=== PATIENT | male | born 1960 | race Caucasian/White ===

== ENCOUNTER 2017-09-13 06:25 | Inpatient (IN) ==
[2017-09-13] MEDS ORDERED: CeFAZolin Syr 2,000MG/20 ML 2,000 MG/20 ML SYRINGE IVPB ONE (06:51)
[2017-09-13] MEDS ORDERED: Albuterol 2.5 MG/3 ML NEBULIZER IH ONE (06:53)
[2017-09-13] MEDS ORDERED: *HR* Phenylephrine 10 MG/ML VIAL ONE ×2 (06:53→10:41)
[2017-09-13] MEDS ORDERED: Dexamethasone 4 MG/ML VIAL ONE (06:56)
[2017-09-13] MEDS ORDERED: *HR* Rocuronium Bromide 50 MG/5 ML VIAL ONE (06:56)
[2017-09-13] MEDS ORDERED: Lidocaine -MPF 2% 2 ML VIAL ONE ×2 (06:56→07:28)
[2017-09-13] MEDS ORDERED: *HR* FentaNYL (PF) 100 MCG/2 ML VIAL ONE ×2 (06:56→12:49)
[2017-09-13] MEDS ORDERED: Ondansetron 4 MG/2 ML VIAL ONE (06:56)
[2017-09-13] MEDS ORDERED: *HR* Midazolam HCl 2 MG/2 ML VIAL ONE ×2 (06:56→14:13)
[2017-09-13] MEDS ORDERED: Albuterol 2.5 MG/3 ML NEBULIZER ONE (06:57)
[2017-09-13] MEDS ORDERED: *HR* Propofol 200 MG/20 ML VIAL IVP ONE ×2 (06:57→09:54)
[2017-09-13] MEDS ORDERED: Ringers Solution, Lactated 1,000 ML IVC SCH (07:00)
[2017-09-13] MEDS ORDERED: Famotidine 20 MG/2 ML VIAL IVP ONE (07:05)
[2017-09-13] MEDS ORDERED: Pregabalin 50 MG CAPSULE PO STA (07:06)
[2017-09-13] MEDS ORDERED: Acetaminophen IV 1,000 MG/100 ML INFUS..BTL IVPB ONE (07:06)
[2017-09-13] MEDS ORDERED: Heparin 1,000 UNITS/500 mL 1,000 ML ONE (07:09)
--- NOTE | 2017-09-13 07:13 | Anesthesia Evaluation PreOp ---
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) Alcohol Use: none Drug use: none Medications and Allergies Aspirin 81 mg PO DAILY 12/28/16 [History] Cyclobenzaprine [Flexeril] 10 mg PO HS 12/28/16 [History] Gabapentin [Neurontin] 800 mg PO TID 12/28/16 [History] Amlodipine Besylate 10 mg PO DAILY 08/30/17 [History] Atorvastatin [Lipitor] 40 mg PO HS 08/30/17 [History] Clotrimazole 1% CRM [Lotrimin 1%] 1 appl TP BID 08/30/17 [History] Losartan [Cozaar] 25 mg PO DAILY 08/30/17 [History] Nicotine Patch [Nicoderm] 21 mg TD DAILY 08/30/17 [History] Pantoprazole Sodium [Protonix] 40 mg PO DAILY 08/30/17 [History] Tamsulosin [Flomax] 0.4 mg PO DAILY 08/30/17 [History] OxyCODONE/APAP 5/325 [Percocet 5/325 MG] 1 tab PO BID PRN 09/13/17 [History] 3 Allergy/AdvReac Type Severity Reaction Status Date / Time hydrochlorothiazide AdvReac See Verified 09/13/17 07:27 Comments morphine AdvReac Nausea Verified 09/13/17 07:15 - Meds/Allergy Pre-op Review Medications Reviewed: Yes Allergies Reviewed: Yes Beta Blockers on Current Med List: No Anesthesia Results - Labs Laboratory Tests 08/27/17 08/27/17 08/27/17 08:07 08:07 08:07 WBC 7.9 Hgb 14.1 Hct 46.2 Plt Count 411 H PT 11.0 INR 1.0 APTT Sodium 140 Potassium 4.3 Chloride 104 Carbon Dioxide 28 BUN 27 H Creatinine 1.33 H 08/27/17 13:54 WBC Hgb Hct Plt Count PT INR APTT 30.1 Sodium Potassium Chloride Carbon Dioxide BUN Creatinine - Imaging EKG: image reviewed (97bpm - INUS RHYTHM WITH SHORT GA INTERVAL NONSPECIFIC T- WAVE ABNORMALITY Electronically Signed On 08-29-2017 8:37:53 EST by Daniele Vazquez MD) Anesthesia Exam O2 Sat Height 1.78 m Height 1.78 m Height 1.78 m Weight 80.286 kg Weight 80.286 kg Weight 80.286 kg O2 Sat by Pulse Oximetry 96 O2 Sat by Pulse Oximetry 96 Vital Signs Temp Pulse Resp BP Pulse Ox 98.2 F 82 18 137/83 96 09/13/17 06:50 09/13/17 06:50 09/13/17 06:50 09/13/17 06:50 09/13/17 06:50 Height: 5'10" Weight: 177# BMI = 25 NPO (# of Hours): MNOc Pain Scale Used: Numeric (1 - 10) - HEENT Pupil (Motor): Pupils equal, EOMI Mallampati: II Teeth: Normal Oral Opening: Greater than 3 - CREATIVE COORDINATOR LOC: Oriented CREATIVE COORDINATOR Motor: Normal RUE, Normal LUE, Normal RLE, Normal LLE, Normal Face CREATIVE COORDINATOR Sensory: Normal: RUE, LUE, RLE, LLE, Face - Cardiac Rhythm: Regular Murmur: None - Pulmonary Breath Sounds: bilateral Clear Respiratory Effort: Symmetrical Anesthesia Assess/Plan ASA Score: 3 (PVDz, Smoker) Modified Portia Scale for Level of Consciousness: Cooperative, oriented, and tranquil Anesthetic Plan: General Monitoring Plan: Standard Monitors, A-Line Recovery Plan: PACU Anes Supervising Prov Stmt: Pt seen/evaluated, R&B Discussed, questions answered and consen obtained. Sunni Wiggins MD
[2017-09-13] MEDS ORDERED: *HR* Remifentanil 2 MG VIAL IVP ONE (07:16)
[2017-09-13] MEDS ORDERED: Heparin 1,000 UNITS/500 mL 500 ML ONE (07:28)
--- NOTE | 2017-09-13 07:34 | History & Physical Report ---
Date of Encounter: 09/13/17 Time of Encounter: 07:25 24 Hour HP Update - Instructions Instructions: If the History and Physical is less than 30 days old and was completed prior to A.M. admission and or procedure and has NOT been updated on calendar day of procedure please complete this update prior to performing procedure. - Update Patient reports changes in Medical Condition: No Changes in examination, assessment, or condition: No Changes in Medication: No Preop tests/diagnostics Reviewed: Yes Surgery Remains Indicated: Yes Consent for Planned Operative Procedure(s) Verified: Yes - Pre-Operative Checklist Preoperative Checklist Indicated: Yes Prophylactic Antibiotic Ordered: Yes Home Medications Include Beta Nava: No Beta Nava Taken Today (Day of Surgery): No Beta Nava Taken Yesterday (Day Prior to Surgery): No Is VTE Prophylaxis Indicated?: Yes
[2017-09-13] MEDS ORDERED: ceFAZolin 1,000 MG, Sodium Chloride IRRigation 1,000 ML IR ONE (07:45)
[2017-09-13] MEDS ORDERED: Isovue-300 150 ML INFUS..BTL IV ONE (08:26)
[2017-09-13] MEDS ORDERED: Isovue-300 50 ML VIAL IVP ONE (08:26)
[2017-09-13] MEDS ORDERED: EPHEDrine 50 MG/ML VIAL ONE (08:46)
[2017-09-13] MEDS ORDERED: Water for inj. (sterile) 10 ML IV ONE (08:56)
[2017-09-13] MEDS ORDERED: *HR* OxyCODONE Immed Rel 5 MG TABLET PO PRN (09:34)
[2017-09-13] MEDS ORDERED: Ondansetron 4 MG/2 ML VIAL IVP ONE (09:34)
[2017-09-13] MEDS ORDERED: Famotidine 20 MG/2 ML VIAL ONE (09:59)
[2017-09-13] MEDS ORDERED: *HR* Heparin 5,000 UNIT/ML VIAL ONE (10:02)
[2017-09-13] MEDS ORDERED: *HR* EPINEPHrine 1 MG/ML AMPUL ONE (10:02)
[2017-09-13] MEDS ORDERED: Neostigmine Methylsulfate 3 MG/3 ML SYRINGE ONE (12:11)
--- NOTE | 2017-09-13 12:55 | Operative Note ---
Date of procedure: 09/13/17 Pre-op diagnosis: PAD/claudication Post-op diagnosis: same Procedure: left SFA remote endarterectomy Left lower extremity angiogram Left common femoral and orificial profundus femoris endarterectomy left femoral to AK popliteal bypass with 6 mm PTFE distaflo Complications: 0 Anesthesia: GETA Surgeon: Tommy Chang Was there an surgical assistant certified present: No Estimated blood loss (cc): 200 Specimen: 0 Condition: stable Disposition: PACU Procedure in Detail: History Eduardo Zamora is a 57-year-old white male with known left lower extremity occlusive disease. He had undergone a balloon angioplasty of the left superficial femoral artery chronic total occlusion earlier in 2016. He had return of his symptoms. In August 2017 he returned to the endovascular suite. Balloon angioplasty this time was unsuccessful and he now comes to the operating room for revascularization. Procedure After informed consent was obtained the patient was taken to the operating room. General endotracheal anesthesia was established under arterial line pressure monitoring. A timeout protocol was observed. The left lower extremity was sterilely prepped and draped. An incision was made in the left groin to perform a formal exposure of the common femoral artery and its bifurcation with attention to dissecting and exposing the proximal 68 cm of the left superficial femoral artery. This vessel was occluded. Heparin was then administered in a dose of 5000 units. After 3 minute delay the proximal superficial femoral artery was clamped so that pulsatile flow would continue into the left leg via the common femoral and profunda femoris artery. A longitudinal arteriotomy was then created on the superficial femoral artery. A combination of chronic thrombus and acute thrombus and atherosclerotic material was encountered. This was then dissected in the standard routine method. Fluoroscopy was then used to shante the term terminus of the plaque as documented on the recent angiogram. Then using the remote endarterectomy spatula the plaque was dissected for the length of the superficial femoral artery. With this done the cutting rings were inserted. The plaque was then removed but there was an incomplete removal of the plaque in the sense that there was an area distally where the wires and catheters would not pass. A small extravascular leak was identified due to the endarterectomy material. Using a variety of wires and catheters attempt was made to reestablish connection into the distal true lumen of the [id number] popliteal artery. Despite these efforts and angiographic evaluation it was unsuccessful. Therefore it was opted to do a direct formal exploration. Therefore a second incision was then made on the medial aspect of the distal left thigh. Dissection was carried down to the [id number] popliteal artery. Control was obtained. Signs of mural hematoma were identified. An arteriotomy was then made in a longitudinal fashion. Thrombus was identified at this area as well as mild plaque. The distal lumen was patent and was flushed with heparinized saline. A 4 [place] Eris catheter was then passed retrograde and an attempt to thrombectomize any residual material. However upon passing this in a retrograde manner for a limited distance of about 10 cm the catheter would not advance further. Thrombus was identified and removed. The flow of blood through this area was enhanced but was not satisfactory and so therefore was opted to proceed with bypass graft. Therefore a 6 mm PTFE Distaflo was selected. The distal anastomosis was performed first. This was performed in end- to-side fashion using 6-0 Prolene suture. The graft was then passed retrograde through a subsartorial tunnel. The arteriotomy on the superficial femoral artery was carried proximally onto the very distal aspect of the common femoral artery so that any residual thrombus or atherosclerosis could be removed from this area as well as the orifice of the profunda femoris artery. After this extended endarterectomy was performed the area was flushed with heparinized saline. Then using the 6 mm graft as a patch the proximal anastomosis was performed in end-to-side fashion again using 6-0 Prolene. After appropriate backbleeding and flushing the graft was opened. Pulsatile flow was then achieved through the graft and into the popliteal system. Doppler signals are identified 3 at the left ankle. The wounds are then irrigated and hemostasis achieved. The wounds were closed in layers using absorbable suture. There were no intraoperative complications. The patient tolerated the procedure well. Patient was extubated in the operating room and taken to the recovery room in stable condition.
[2017-09-13] MEDS: *HR* FentaNYL (PF) 100 MCG/2 ML VIAL IVP PRN ×3 (13:00→13:15)
--- NOTE | 2017-09-13 13:12 | Anesthesia Evaluation Post Op ---
Date of Encounter: 09/13/17 Time of Encounter: 13:20 - Lungs Lungs: Clear Ascult./Percussion - Airway Airway: Non-obstructed - Cardiovascular Regular Rate - Mental Status Mental Status: Alert & Oriented, Answers Appropriately - Pain Pain Scale: 1 - Nausea Vomiting Nausea Vomiting: Not Present - Hydration Hydration: Ice chips, Bianchi catheter - Discharge PostOp Status: Transfer Patient to floor
[2017-09-13] MEDS ORDERED: Acetaminophen 325 MG TABLET PO PRN (13:51)
[2017-09-13] MEDS ORDERED: Naloxone 0.4 MG/ML INJ IVP PRN (13:51)
[2017-09-13] MEDS ORDERED: Ondansetron 4 MG/2 ML VIAL IVP PRN (13:51)
[2017-09-13] MEDS ORDERED: *HR* Midazolam HCl 2 MG/2 ML VIAL IVP ONE (14:18)
[2017-09-13] MEDS: CeFAZolin Premix DUPLEX 2,000 MG/50 ML BAG IVPB SCH ×2 (16:25→23:31)
[2017-09-13] MEDS: Nicotine 21 MG PATCH.TD24 TD SCH (16:26)
[2017-09-13] MEDS: Gabapentin 400 MG CAPSULE PO SCH ×2 (16:26→20:18)
[2017-09-13] MEDS: *HR* OxyCODONE Immed Rel 5 MG TABLET PO PRN (17:08)
[2017-09-13] MEDS: *HR* Metoprolol 5 MG/5 ML VIAL IVP SCH ×2 (17:24→23:31)
[2017-09-13] MEDS: *HR* OxyCODONE/APAP 5/325 TABLET PO PRN (20:17)
[2017-09-13] MEDS: Clotrimazole 1% CRM 15 GM TUBE TP SCH (20:28)
[2017-09-14] MEDS: *HR* OxyCODONE Immed Rel 5 MG TABLET PO PRN ×2 (03:49→11:31)
[2017-09-14 04:01] LABS: Basophils % 0.1 %; Hematocrit 33.2 % (37.5-50.1); Hemoglobin 10.9 g/dL (12.9-16.9); Immature Granulocytes % 0.5 % (0-4); Lymphocytes % 13.1 %; Mean Corpuscular HGB Conc 32.8 g/dL (31.6-35.5); Mean Corpuscular Hemoglobin 29.8 pg (28.0-33.3); Mean Corpuscular Volume 90.7 fL (83.0-100.0); Mean Platelet Volume 10.5 fL (9.4-12.4); Monocytes # 1.2 K/mcL (0.0-1.3); Monocytes % 7.9 %; Platelet Count 296 K/mcL (140-400); Red Blood Count 3.66 M/mcL (4.19-5.50); Red Cell Distribution Width 14.3 % (11.5-14.5); Segmented Neutrophils % 78.4 %
[2017-09-14 04:17] LABS: BUN/Creatinine Ratio 12 (6-26); Blood Urea Nitrogen 15 mg/dL (6-20); Calcium 8.8 mg/dL (8.6-10.3); Carbon Dioxide 26 mEq/L (23-29); Chloride 109 mEq/L (98-107); Glucose 113 mg/dL (70-105); Osmolality,Calculated 294 (280-300); Sodium 141 mEq/L (136-145); eGFR For African Americans > 60 (> 60); eGFR For Non-African Americans 59 (> 60)
[2017-09-14] MEDS: *HR* Metoprolol 5 MG/5 ML VIAL IVP SCH ×2 (06:05→11:31)
[2017-09-14] MEDS: CeFAZolin Premix DUPLEX 2,000 MG/50 ML BAG IVPB SCH (08:00)
[2017-09-14] MEDS: Nicotine 21 MG PATCH.TD24 TD SCH (08:01)
[2017-09-14] MEDS: Gabapentin 400 MG CAPSULE PO SCH (08:01)
[2017-09-14] MEDS: Clotrimazole 1% CRM 15 GM TUBE TP SCH (08:02)
[2017-09-14] MEDS ORDERED: Nicotine 21 MG PATCH.TD24 TD SCH (09:00)
[2017-09-14] MEDS ORDERED: Aspirin 81 MG TAB.CHEW PO SCH (09:00)
[2017-09-14] MEDS ORDERED: amLODIPine 5 MG TABLET PO SCH (09:00)
[2017-09-14] MEDS: *HR* OxyCODONE/APAP 5/325 TABLET PO PRN (09:41)
[2017-09-14 11:14] VITALS: BP 120/72
--- NOTE | 2017-09-14 12:27 | Discharge Summary ---
Date of Encounter: 09/14/17 Time of Encounter: 12:25 - Discharge Diagnosis (1) PAD (peripheral artery disease) Priority: Primary Status: Chronic Comments: Patient has lifestyle limiting left lower extremity claudication due to recurrent occlusion of the left superficial femoral artery. He initially had had a successful balloon angioplasty in early 2016. The vessel went on to reocclude and a second time endovascular intervention was unsuccessful leading to his surgical revascularization yesterday. (2) Hypertension Priority: Secondary Status: Chronic Comments: Patient under medical treatment. Qualifiers: Hypertension type: essential hypertension Qualified Code(s): I10 - Essential (primary) hypertension (3) Hyperlipidemia Priority: Secondary Status: Chronic Comments: Patient under medical treatment Qualifiers: Hyperlipidemia type: unspecified Qualified Code(s): E78.5 - Hyperlipidemia , unspecified (4) History of tobacco abuse Priority: Secondary Status: Chronic Comments: Patient under medical treatment - Discharge Medications Prescriptions: OxyCODONE/APAP 5/325 [Percocet 5/325 MG] 1 tab PO BID PRN 7 Days #10 tablet PRN Reason: Pain Home Medications: Aspirin 81 mg PO DAILY 12/28/16 [History] Cyclobenzaprine [Flexeril] 10 mg PO HS 12/28/16 [History] Gabapentin [Neurontin] 800 mg PO TID 12/28/16 [History] Amlodipine Besylate 10 mg PO DAILY 08/30/17 [History] Atorvastatin [Lipitor] 40 mg PO HS 08/30/17 [History] Clotrimazole 1% CRM [Lotrimin 1%] 1 appl TP BID 08/30/17 [History] Losartan [Cozaar] 25 mg PO DAILY 08/30/17 [History] Nicotine Patch [Nicoderm] 21 mg TD DAILY 08/30/17 [History] Pantoprazole Sodium [Protonix] 40 mg PO DAILY 08/30/17 [History] Tamsulosin [Flomax] 0.4 mg PO DAILY 08/30/17 [History] OxyCODONE/APAP 5/325 [Percocet 5/325 MG] 1 tab PO BID PRN 7 Days #10 tablet 05/22 [Rx] Allergies/Adverse Reactions: 3 Allergy/AdvReac Type Severity Reaction Status Date / Time hydrochlorothiazide AdvReac See Verified 09/13/17 07:27 Comments morphine AdvReac Nausea Verified 09/13/17 07:15 Date of admission: 09/13/17 13:42 Primary care physician: Devyn Lazaro MD Consults: None Procedure(s) Performed: Left superficial femoral artery remote endarterectomy, left common femoral artery and profunda femoris orifice endarterectomy, and left femoral to above- the-knee popliteal artery bypass graft with 6 mm PTFE. Discharging clinician: Tommy Chang Anticipated date of discharge: 09/14/17 - Patient Status Disposition: Home, Self-Care Condition: Good Functional capacity at discharge: independent ambulation Overall status at discharge: patient is progressing back to baseline - Discharge Instructions Follow Up With: Devyn Lazaro MD [Primary Care Provider] - 09/20/17 11:30 am Tommy Chang MD [Partnered Physician] - 10/23/17 9:45 am Additional Instructions: Removed surgical dressings on September 15. Keep surgical site dry for total of 5 days following surgery. No automobile driving. No manual labor. No lifting greater than 10 pounds. Keep left lower extremity elevated while in the seated position. Patient is to ambulate daily with a goal of 20 minutes twice a day. Patient may walk inside or outside. Patient may use stairs as tolerated. Patient is to use incentive spirometer 10 times an hour while awake for the next 2 weeks. Patient is to resume his usual home medications. Patient is to follow-up with Dr. Chang in approximately 2 weeks. - Diet and Activity Activity: increase activity as tolerated Diet: low fat, low cholesterol - Hospital Course Hospital course: Mr. Zamora is a 57 year old male With left lower extremity claudication. He underwent a left lower extremity revascularization requiring remote endarterectomy as well as femoral-popliteal bypass graft. Postoperatively the patient had a uneventful postoperative course. He had confucianist of palpable posterior tibial pulses at the ankle. His left foot was warm and pink. He was able to ambulate. He was felt fit for discharge on the afternoon of postoperative day #1. - Time Spent with Patient Total time spent providing and/or coordinating discharge services: Exam Vital Signs, Last 4 Hours Temp Pulse Resp BP Pulse Ox 09/14/17 11:13 98.7 F 92 20 120/72 93 General: Present: Conversant, No Apparent Distress, Well developed, Well nourished HEENT: Present: Atraumatic, Normocephaly Neck: Absent: JVD Cardiac: Present: Reg Rate and Rhythm Neuro: Present: Alert and responsive, No focal deficits noted, Cranial nerves grossly intact, Motor nerves grossly intact, Sensory nerves grossly intact Abdomen: Present: Soft Vascular: Present: Pulse, normal (Left ankle pulses are normal.), Color/ Temperature (Left foot is warm and pink), Surgical incisions (Dry dressings at groin and left thigh incisions.) Skin: Present: No rashes noted on visualized skin - VTE Documentation of Mechanical Device: Intermittent pneumatic compression device
== END 2017-09-14 14:15 | disposition home or self-care (01) | DRG 181 ==
LOC: SAMDAY 06:25 → 2NNU 13:42
PROVIDERS: ADMIT Surgery Vascular Surgery; ATTEND Surgery Vascular Surgery

== ENCOUNTER 2018-09-02 06:15 | Inpatient (IN) ==
[2018-09-02] MEDS ORDERED: Albuterol 2.5 MG/3 ML NEBULIZER IH ONE (06:49)
[2018-09-02] MEDS ORDERED: CeFAZolin Syr 2,000MG/20 ML 2,000 MG/20 ML SYRINGE IVPB ONE (06:49)
[2018-09-02] MEDS ORDERED: Lidocaine -MPF 4% 5 ML AMPUL ONE (06:51)
[2018-09-02] MEDS ORDERED: Heparin 1,000 UNITS/500 mL 1,000 ML ONE ×2 (06:55→07:19)
[2018-09-02] MEDS ORDERED: *HR* Midazolam HCl 2 MG/2 ML VIAL ONE (06:57)
[2018-09-02] MEDS ORDERED: *HR* FentaNYL (PF) 100 MCG/2 ML VIAL ONE ×3 (06:57→12:39)
[2018-09-02] MEDS ORDERED: *HR* Propofol 200 MG/20 ML VIAL IVP ONE (06:57)
[2018-09-02] MEDS ORDERED: *HR* Rocuronium Bromide 50 MG/5 ML VIAL ONE (06:58)
[2018-09-02] MEDS ORDERED: Lidocaine -MPF 2% 2 ML VIAL ONE (06:58)
[2018-09-02] MEDS ORDERED: Dexamethasone 4 MG/ML VIAL ONE ×2 (06:58→10:12)
[2018-09-02] MEDS ORDERED: Ondansetron 4 MG/2 ML VIAL ONE (06:58)
[2018-09-02] MEDS: Ringers Solution, Lactated 1,000 ML IVC SCH ×2 (07:13→11:23)
--- NOTE | 2018-09-02 07:14 | Anesthesia Evaluation PreOp ---
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, Other (chronic back pain) Other Medical History: Hepatic (hepatitis C), Renal (H/O kidney failure 2016), GERD Anesthesia History: No Prior Anesthetic Complications, Past Anesthesia Alcohol Use: none Drug use: none Medications and Allergies Aspirin 81 mg PO DAILY 12/28/16 [History] Gabapentin [Neurontin] 800 mg PO TID 12/28/16 [History] Atorvastatin [Lipitor] 40 mg PO HS 08/30/17 [History] Losartan [Cozaar] 25 mg PO DAILY 08/30/17 [History] Pantoprazole Sodium [Protonix] 40 mg PO DAILY 08/30/17 [History] Tamsulosin [Flomax] 0.4 mg PO DAILY 08/30/17 [History] Amlodipine Besylate 10 mg PO DAILY 08/29/18 [History] Docusate [Colace] 100 mg PO DAILY 08/29/18 [History] OxyCODONE/APAP 5/325 [Percocet 5/325 MG] 1 tab PO QID 08/29/18 [History] Trazodone HCl 2 tab PO HS 08/29/18 [History] Allergy/AdvReac Type Severity Reaction Status Date / Time hydrochlorothiazide AdvReac See Verified 09/13/17 07:27 Comments morphine AdvReac Nausea Verified 09/13/17 07:15 - Meds/Allergy Pre-op Review Medications Reviewed: Yes Allergies Reviewed: Yes Beta Blockers on Current Med List: No Anesthesia Results - Labs Laboratory Tests 08/28/18 08/28/18 08/28/18 13:46 13:46 13:46 WBC 7.9 Hgb 13.5 Hct 42.9 Plt Count 289 PT 11.3 INR 1.0 APTT 34.8 Sodium 140 Potassium 4.3 BUN 16 Creatinine 1.18 - Imaging EKG: report reviewed (08/21/2018 SINUS RHYTHM WITH SHORT AK INTERVAL WITH OCCASIONAL SUPRAVENTRICULAR PREMATURE COMPLEXES POSSIBLE LEFT ATRIAL ENLARGEMENT) Anesthesia Exam O2 Sat Height 1.75 m Height 1.75 m Weight 72.575 kg Weight 72.575 kg O2 Sat by Pulse Oximetry 97 Vital Signs Temp Pulse Resp BP Pulse Ox 97.7 F 72 18 121/69 97 09/02/18 06:39 09/02/18 06:39 09/02/18 06:39 09/02/18 06:39 09/02/18 06:39 Height: 5'9'' Weight: 160 lbs NPO (# of Hours): 8 Pain Scale: 6 (back) Pain Scale Used: Numeric (1 - 10) - HEENT Pupil (Motor): EOMI Mallampati: II Teeth: Edentulous Oral Opening: Greater than 3 - ADULT CROSSING GUARD LOC: Oriented ADULT CROSSING GUARD Motor: Normal RUE, Normal RLE, Normal Face, Deficit LUE, Deficit LLE ADULT CROSSING GUARD Sensory: Normal: RUE, LUE, RLE, Face, Deficit: LLE - Cardiac Rhythm: Regular Murmur: None - Pulmonary Breath Sounds: bilateral Clear Respiratory Effort: Symmetrical Anesthesia Assess/Plan ASA Score: 3 Level of consciousness: Cooperative, Oriented, Tranquil Anesthetic Plan: General Monitoring Plan: Standard Monitors, A-Line Recovery Plan: PACU
[2018-09-02] MEDS ORDERED: Bupivacaine-MPF 0.25% 10 ML VIAL ONE (07:19)
--- NOTE | 2018-09-02 07:22 | History & Physical Report ---
Date of Encounter: 09/02/18 Time of Encounter: 07:22 24 Hour HP Update - Instructions Instructions: If the History and Physical is less than 30 days old and was completed prior to A.M. admission and or procedure and has NOT been updated on calendar day of procedure please complete this update prior to performing procedure. - Update Patient reports changes in Medical Condition: No Changes in examination, assessment, or condition: No Changes in Medication: No Preop tests/diagnostics Reviewed: Yes Surgery Remains Indicated: Yes Consent for Planned Operative Procedure(s) Verified: Yes - Pre-Operative Checklist Preoperative Checklist Indicated: Yes Prophylactic Antibiotic Ordered: Yes Home Medications Include Beta Nava: No Beta Nava Taken Today (Day of Surgery): No Beta Nava Taken Yesterday (Day Prior to Surgery): No Is VTE Prophylaxis Indicated?: Yes
[2018-09-02] MEDS ORDERED: *HR* OxyCODONE Immed Rel 5 MG TABLET PO PRN ×2 (07:43→14:54)
[2018-09-02] MEDS ORDERED: *HR* HYDROmorphone (PF) 1 MG/ML SYRINGE IVP PRN (07:43)
[2018-09-02] MEDS ORDERED: Ondansetron 4 MG/2 ML VIAL IVP ONE (07:43)
[2018-09-02] MEDS ORDERED: ceFAZolin 1,000 MG, Sodium Chloride IRRigation 1,000 ML IR ONE (07:45)
[2018-09-02] MEDS ORDERED: EPHEDrine 50 MG/ML VIAL ONE (08:17)
[2018-09-02] MEDS ORDERED: *HR* Phenylephrine 10 MG/ML VIAL ONE ×2 (08:19→10:29)
[2018-09-02] MEDS ORDERED: *HR* PHENYLEPHRINE 1,000 MCG/10 ML SYRINGE IVP ONE (08:19)
[2018-09-02] MEDS ORDERED: *HR* Vasopressin 20 UNIT/ML VIAL ONE (08:25)
[2018-09-02] MEDS ORDERED: *HR* Heparin 5,000 UNIT/ML VIAL ONE ×2 (08:30→11:43)
--- NOTE | 2018-09-02 09:53 | Anesthesia Procedures ---
Date of Encounter: 09/02/18 Time of Encounter: 07:55 Procedures: Anesthesia - Arterial Line Consent obtained: written consent Time out performed: Yes Supplemental Oxygen via Nasal Cannula (L/min): 15 (via mask) Local Anesthetic: Lidocaine 1% Amount of Anesthetic used (mls): 0.5 Size (Gauge): 20 Length (inches): 1 3/4 Technique Used: sterile prep Post-Procedure: line taped into place Patient tolerated procedure: well Complications: none Site: Radial L Vitals: see anesthesia record Comments: Ramon BONNER
--- NOTE | 2018-09-02 13:54 | Operative Note ---
Date of procedure: 09/02/18 Pre-op diagnosis: PAD/life style limiting claudication Post-op diagnosis: same Procedure: redo left femoral to AK popliteal bypass with non reversed GSV endarterectomy of left AK popliteal artery thrombectomy of left femoral-AK popliteal PTFE graft Complications: 0 Anesthesia: GETA Surgeon: Tommy Chang Was there an operator/assistant foreman present: No Estimated blood loss (cc): 200 Specimen: 0 Condition: stable Disposition: PACU
--- NOTE | 2018-09-02 14:31 | Anesthesia Evaluation Post Op ---
Date of Encounter: 09/02/18 Time of Encounter: 14:30 - Discharge PostOp Status: Transfer Patient to floor (Patient's vital signs have been reviewed. Patient is stable postoperatively and has adequately recovered from anesthesia. Patient is determined to have stable airway patency and respiratory function including respiratory rate and oxygen saturation. Patient has a stable heart rate, blood pressure and adequate hydration. Patients mental status is acceptable. Patients temperature is appropriate. Pain and nausea are adequately controlled.)
[2018-09-02] MEDS ORDERED: Naloxone 0.4 MG/ML INJ IVP PRN (14:54)
[2018-09-02] MEDS ORDERED: *HR* Labetalol 20 MG/4 ML SYRINGE IVP PRN (14:54)
[2018-09-02] MEDS ORDERED: Ondansetron 4 MG/2 ML VIAL IVP PRN (14:54)
[2018-09-02] MEDS ORDERED: Acetaminophen 325 MG TABLET PO PRN (14:54)
[2018-09-02] MEDS: Gabapentin 400 MG CAPSULE PO SCH ×2 (15:42→21:15)
[2018-09-02] MEDS ORDERED: traZODone 50 MG TABLET PO SCH (21:00)
[2018-09-02] MEDS ORDERED: traZODone 50 MG TABLET PO PRN (21:00)
[2018-09-02] MEDS: *HR* OxyCODONE/APAP 5/325 TABLET PO PRN (21:15)
[2018-09-03] MEDS: *HR* OxyCODONE/APAP 5/325 TABLET PO PRN ×2 (04:30→10:38)
[2018-09-03 05:02] LABS: Basophils % 0.2 %; Eosinophils % 0.1 %; Immature Granulocytes % 0.4 % (0-4); Lymphocytes % 13.7 %; Mean Corpuscular HGB Conc 33.3 g/dL (31.6-35.5); Mean Corpuscular Hemoglobin 31.1 pg (28.0-33.3); Mean Corpuscular Volume 93.2 fL (83.0-100.0); Mean Platelet Volume 11.2 fL (9.4-12.4); Monocytes # 1.4 K/mcL (0.0-1.3); Monocytes % 9.5 %; Neutrophils # 11.3 K/mcL (1.6-8.9); Platelet Count 226 K/mcL (140-400); Red Blood Count 3.54 M/mcL (4.19-5.50); Red Cell Distribution Width 13.5 % (11.5-14.5); Segmented Neutrophils % 76.1 %
[2018-09-03 05:14] LABS: BUN/Creatinine Ratio 14 (6-26); Blood Urea Nitrogen 18 mg/dL (6-20); Carbon Dioxide 26 mEq/L (23-29); Chloride 110 mEq/L (98-107); Glucose 107 mg/dL (70-105); Osmolality,Calculated 294 (280-300); Potassium 3.7 mEq/L (3.5-5.1); Sodium 141 mEq/L (136-145); eGFR For Non-African Americans 57 (> 60)
[2018-09-03] MEDS: Gabapentin 400 MG CAPSULE PO SCH (07:42)
[2018-09-03] MEDS ORDERED: amLODIPine 5 MG TABLET PO SCH (09:00)
[2018-09-03] MEDS ORDERED: Aspirin 81 MG TAB.CHEW PO SCH (09:00)
--- NOTE | 2018-09-03 09:01 | Discharge Summary ---
Orders not resulted at time of discharge: Pending orders 08/29/18 14:38 Red Blood Cells [BBK] Routine Date of Encounter: 09/03/18 Time of Encounter: 08:58 - Discharge Diagnosis (1) PAD (peripheral artery disease) Priority: Primary Status: Chronic Comments: Recurrent ischemia of left lower extremity with occlusion of left femoral- popliteal bypass graft. (2) Hypertension Priority: Secondary Status: Chronic Comments: Chronic hypertension Qualifiers: Hypertension type: essential hypertension Qualified Code(s): I10 - Essential (primary) hypertension (3) Hyperlipidemia Priority: Secondary Status: Chronic Comments: Chronic hyperlipidemia Qualifiers: Hyperlipidemia type: unspecified Qualified Code(s): E78.5 - Hyperlipidemia, unspecified (4) History of tobacco abuse Priority: Secondary Status: Chronic Comments: History of chronic tobacco abuse - Hospital Course Hospital course: Mr. Zamora is a 58 year old male With recurrent left lower extremity vascular occlusive disease. He is undergone multiple treatments including endovascular therapy as well as bypass grafting. The left flexure we bypass graft has gone on to occlude a now comes back to the hospital for revascularization. The patient underwent a complicated reconstruction in a redo environment. He had a new bypass graft using non- reversed greater saphenous vein created, endarterectomy with patch angioplasty of the popliteal artery above the knee, and thrombectomy of the original PTFE femoral-popliteal bypass graft. Patient had excellent result with a warm pink left foot with palpable pulse at the posterior tibial artery. - Time Spent with Patient Total time spent providing and/or coordinating discharge services: - Discharge Medications Home Medications: Aspirin 81 mg PO DAILY 12/28/16 [History] Gabapentin [Neurontin] 800 mg PO TID 12/28/16 [History] Atorvastatin [Lipitor] 40 mg PO HS 08/30/17 [History] Losartan [Cozaar] 25 mg PO DAILY 08/30/17 [History] Pantoprazole Sodium [Protonix] 40 mg PO DAILY 08/30/17 [History] Tamsulosin [Flomax] 0.4 mg PO DAILY 08/30/17 [History] Docusate [Colace] 100 mg PO DAILY 08/29/18 [History] OxyCODONE/APAP 5/325 [Percocet 5/325 MG] 1 tab PO QID PRN 08/29/18 [History] Trazodone HCl 100 - 200 mg PO HS 08/29/18 [History] Amlodipine Besylate 5 mg PO DAILY 09/02/18 [History] Allergies/Adverse Reactions: Allergy/AdvReac Type Severity Reaction Status Date / Time hydrochlorothiazide AdvReac See Verified 09/02/18 07:22 Comments morphine AdvReac Nausea Verified 09/02/18 07:22 Date of admission: 09/02/18 14:33 Primary care physician: Devyn Lazaro MD Consults: 09/02/18 15:24 Consult to Nutrition [CONS] Routine Comment: Consulting Provider: NUTRITION Reason for Dietary Consult: MST Score Procedure(s) Performed: Redo left femoral popliteal bypass graft with non-reversed greater saphenous vein, endarterectomy of above-knee popliteal artery with bovine pericardial patch angioplasty, and thrombectomy of original left femoral popliteal PTFE bypass graft. Discharging clinician: Tommy Chang Anticipated date of discharge: 09/03/18 Exam Vital Signs, Last 4 Hours Temp Pulse Resp BP Pulse Ox 09/03/18 08:00 82 09/03/18 07:35 98.6 F 80 18 125/76 95 General: Present: Conversant, No Apparent Distress HEENT: Present: Atraumatic Neuro: Present: Alert and responsive, No focal deficits noted, Cranial nerves grossly intact Vascular: Present: Color/Temperature (Left foot is warm and pink), Surgical incisions (Left thigh incisions are clean and dry.), Other (Triphasic Doppler signals at left posterior tibial artery. Doppler signals are also present over the peroneal and dorsalis pedis artery.) Skin: Present: No rashes noted on visualized skin - Patient Status Disposition: Home, Self-Care Condition: Good Functional capacity at discharge: independent ambulation Overall status at discharge: patient is progressing back to baseline - Discharge Instructions Follow Up With: Devyn Lazaro MD [Primary Care Provider] - 09/10/18 10:15 am Tommy Chang MD [Partnered Physician] - 09/17/18 1:30 pm Additional Instructions: Keep surgical site dry for total of 5 days following surgery. No lifting greater than 10 pounds. No manual labor. Patient may walk as much as tolerated. Patient may use stairs. No automobile driving. Resume usual home medications. Remove left thigh surgical dressings tomorrow. Elevate left lower extremity while seated. - Diet and Activity Activity: increase activity as tolerated Diet: low fat, low cholesterol
[2018-09-03 11:33] VITALS: BP 110/69
== END 2018-09-03 15:52 | disposition home or self-care (01) | DRG 181 ==
LOC: SAMDAY 06:15 → 2NNU 14:33
PROVIDERS: ADMIT Surgery Vascular Surgery; ATTEND Surgery Vascular Surgery

== ENCOUNTER 2018-12-05 09:47 | Inpatient (IN) ==
[2018-12-05] MEDS ORDERED: *HR* Succinylcholine 200 MG/10 ML VIAL IVP ONE (10:03)
[2018-12-05] MEDS ORDERED: Lidocaine -MPF 2% 2 ML VIAL ONE ×2 (10:03→11:23)
[2018-12-05] MEDS ORDERED: Ondansetron 4 MG/2 ML VIAL ONE (10:03)
[2018-12-05] MEDS ORDERED: Dexamethasone 4 MG/ML VIAL ONE (10:03)
[2018-12-05] MEDS ORDERED: *HR* Propofol 200 MG/20 ML VIAL IVP ONE (10:06)
[2018-12-05] MEDS ORDERED: *HR* Midazolam HCl 2 MG/2 ML VIAL ONE (10:09)
[2018-12-05] MEDS ORDERED: *HR* FentaNYL (PF) 100 MCG/2 ML VIAL ONE ×2 (10:09→12:59)
[2018-12-05] MEDS ORDERED: Albuterol 2.5 MG/3 ML NEBULIZER IH ONE (10:17)
[2018-12-05] MEDS ORDERED: CeFAZolin Syr 2,000MG/20 ML 2,000 MG/20 ML SYRINGE IVPB ONE (10:17)
[2018-12-05] MEDS ORDERED: Albuterol 2.5 MG/3 ML NEBULIZER ONE (10:21)
[2018-12-05] MEDS ORDERED: Ringers Solution, Lactated 1,000 ML IVC SCH (10:30)
--- NOTE | 2018-12-05 10:32 | History & Physical Report ---
Date of Encounter: 12/05/18 Time of Encounter: 10:31 24 Hour HP Update - Instructions Instructions: If the History and Physical is less than 30 days old and was completed prior to A.M. admission and or procedure and has NOT been updated on calendar day of procedure please complete this update prior to performing procedure. - Update Patient reports changes in Medical Condition: No Changes in examination, assessment, or condition: No Changes in Medication: No Preop tests/diagnostics Reviewed: Yes Surgery Remains Indicated: Yes Consent for Planned Operative Procedure(s) Verified: Yes - Pre-Operative Checklist Preoperative Checklist Indicated: Yes Prophylactic Antibiotic Ordered: Yes Home Medications Include Beta Nava: No Beta Nava Taken Today (Day of Surgery): No Beta Nava Taken Yesterday (Day Prior to Surgery): No Is VTE Prophylaxis Indicated?: Yes
--- NOTE | 2018-12-05 10:45 | Anesthesia Evaluation PreOp ---
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: Other (CHRONIC BACK PAIN) Other Medical History: Hepatic (HEP C), GERD (CONTROLLED) Anesthesia History: No Prior Anesthetic Complications, Past Anesthesia Alcohol Use: none Drug use: none Medications and Allergies Aspirin 81 mg PO DAILY 12/28/16 [History] Gabapentin [Neurontin] 800 mg PO TID 12/28/16 [History] Atorvastatin [Lipitor] 40 mg PO HS 08/30/17 [History] Losartan [Cozaar] 25 mg PO DAILY 08/30/17 [History] Pantoprazole Sodium [Protonix] 40 mg PO DAILY 08/30/17 [History] Tamsulosin [Flomax] 0.4 mg PO DAILY 08/30/17 [History] Docusate [Colace] 100 mg PO DAILY 08/29/18 [History] OxyCODONE/APAP 5/325 [Percocet 5/325 MG] 1 tab PO QID PRN 08/29/18 [History] Trazodone HCl 100 - 200 mg PO HS 08/29/18 [History] Amlodipine Besylate 5 mg PO DAILY 09/02/18 [History] Allergy/AdvReac Type Severity Reaction Status Date / Time hydrochlorothiazide AdvReac See Verified 09/02/18 07:22 Comments morphine AdvReac Nausea Verified 09/02/18 07:22 - Meds/Allergy Pre-op Review Medications Reviewed: Yes Allergies Reviewed: Yes Beta Blockers on Current Med List: No Anesthesia Exam Vital Signs/O2 Sat, Most Current Temp Pulse Resp BP Pulse Ox 98.7 F 76 18 147/77 97 12/05/18 10:25 12/05/18 10:25 12/05/18 10:25 12/05/18 10:25 12/05/18 10:25 Weight: 71 KG - BMI 22 NPO (# of Hours): 8 - HEENT Mallampati: I Teeth: Edentulous Denture Type: Upper: Complete - Cardiac Rhythm: Regular - Pulmonary Breath Sounds: bilateral Clear Anesthesia Assess/Plan ASA Score: 3 Monitoring Plan: Standard Monitors Recovery Plan: PACU
[2018-12-05] MEDS ORDERED: Heparin 1,000 UNITS/500 mL 1,000 ML ONE (10:46)
[2018-12-05] MEDS ORDERED: ceFAZolin 1,000 MG, Sodium Chloride IRRigation 1,000 ML IR ONE (11:30)
[2018-12-05] MEDS ORDERED: EPHEDrine 50 MG/ML VIAL ONE (11:53)
[2018-12-05] MEDS ORDERED: *HR* Phenylephrine 10 MG/ML VIAL ONE (12:26)
--- NOTE | 2018-12-05 14:51 | Operative Note ---
Date of procedure: 12/05/18 Pre-op diagnosis: recurrent left leg ischemia Post-op diagnosis: same Procedure: second time redo left femoral-AK popliteal bypass graft with 6 mm PTFE Distaflo Complications: 0 Anesthesia: KELIA Surgeon: Tommy Chang Was there an automotive parts counter assistant present: No Estimated blood loss (cc): 75 Specimen: 0 Condition: stable Disposition: PACU Procedure in Detail: History Eduardo Zamora is a 58-year-old white male with a history of tobacco abuse and hypertension and severe and unremitting left lower extremity vascular disease. This patient has had previous endovascular interventions as well as 2 previous bypass grafts to the left lower extremity. Both of the grafts have failed as have the interventional procedures. Patient now comes back to the operating room for second time redo procedure for the left lower extremity to alleviate lifestyle limiting claudication. Procedure After informed consent was obtained the patient was taken to the operating room. General endotracheal anesthesia was established under arterial line pressure monitoring. The left lower extremity was sterilely prepped and draped. A timeout protocol was observed. The left above-knee popliteal incision was then reopened for the third time. Dissection was carried down to reveal the area of the distal anastomosis. The area was densely scarred. There is no pulsatile flow. The synthetic graft was known to be occluded from before and the vein gr aft was also occluded by duplex scanning. The degree of inflammation suggested this is a chronic process and not amenable to catheter-based thrombectomy. Therefore decision was made to perform a second time redo bypass graft. As the greater saphenous vein had been previously utilized a synthetic was necessary. Therefore a second incision was then made at the left groin. This again was a third time that this area had been operated upon. Dissection was carried down to the chilkoot vessel such that the proximal anastomosis would be made in the common femoral artery proximal to the previous proximal anastomoses. After this was dissected and controlled a subsartorial tunnel was then created. 5000 units of heparin were administered intravenously. After 3 minute delay the distal anastomosis was created. This was performed using a 6 mm PTFE Distaflo graft. An incision was made on the popliteal artery distal to the previous distal anastomoses. The area was irrigated. The anastomosis was then performed using end of graft to side of artery with 6-0 Prolene suture. After appropriate backbleeding and flushing the graft was clamped and the distal popliteal clamps were removed. Attention was then directed back to the left femoral artery. An arteriotomy was made over the anterior aspect of the proximal common femoral artery. This artery was soft though there was mild to moderate amount of atherosclerotic changes in the wall. The inflow was excellent. The anastomosis here was made end-to-side with 6-0 Prolene suture. After appropriate backbleeding and flushing the graft was opened. Pulsatile flow was restored into the popliteal system and into the tibial system. The patient had excellent posterior tibial and dorsalis pedis Doppler signals in the operating room. The incisions were then irrigated and hemostasis achieved. 0.5% Marcaine without epinephrine was infiltrated into the wound and in both proximal and distal thigh. The incisions were then closed using absorbable suture. Dry sterile dressings were applied. The patient was extubated in the operating room. He was taken from the operating room to the recovery room in stable condition.
--- NOTE | 2018-12-05 15:36 | Anesthesia Evaluation Post Op ---
Date of Encounter: 12/05/18 Time of Encounter: 15:36 - Vital Signs Vital Signs: Last Vital Signs Temp 98.2 F 12/05/18 15:25 Pulse 80 12/05/18 15:25 Resp 18 12/05/18 15:25 BP 154/77 12/05/18 15:25 Pulse Ox 98 12/05/18 15:25 - Lungs Lungs: Clear Ascult./Percussion - Airway Airway: Non-obstructed - Cardiovascular Regular Rate - Mental Status Mental Status: Alert & Oriented, Answers Appropriately - Pain Pain Scale: 3 - Nausea Vomiting Nausea Vomiting: Not Present - Hydration Hydration: Ice chips, Bianchi catheter - Discharge PostOp Status: Transfer Patient to floor
[2018-12-05] MEDS ORDERED: Ibuprofen 400 MG TABLET PO PRN (15:42)
[2018-12-05] MEDS ORDERED: Acetaminophen 325 MG TABLET PO PRN (15:42)
[2018-12-05] MEDS ORDERED: traMADol 50 MG TABLET PO PRN (15:42)
[2018-12-05] MEDS ORDERED: *HR* Labetalol 20 MG/4 ML SYRINGE IVP PRN (15:42)
[2018-12-05] MEDS ORDERED: traZODone 50 MG TABLET PO PRN (15:42)
[2018-12-05] MEDS ORDERED: Ondansetron 4 MG/2 ML VIAL IVP PRN (15:42)
[2018-12-05] MEDS ORDERED: Naloxone 0.4 MG/ML INJ IVP PRN (15:42)
--- NOTE | 2018-12-05 16:19 | Discharge Summary ---
Orders not resulted at time of discharge: Pending orders 12/06/18 04:00 Basic Metabolic Panel AM 0400 Complete Blood Count [HEME] AM 0400 Date of Encounter: 12/08/18 Time of Encounter: 12:55 - Discharge Diagnosis (1) PAD (peripheral artery disease) Priority: Primary Status: Chronic Comments: Severe and recurrent lower extremity occlusive disease. Patient underwent second time redo left lower extremity bypass graft with synthetic graft from left common femoral to left above-knee popliteal artery. Patient had restitution of palpable posterior tibial pulse at the ankle. (2) Hypertension Priority: Secondary Status: Chronic Comments: Patient has chronic hypertension. Qualifiers: Hypertension type: essential hypertension Qualified Code(s): I10 - Essential (primary) hypertension (3) Hyperlipidemia Priority: Secondary Status: Chronic Comments: Patient has chronic hyperlipidemia Qualifiers: Hyperlipidemia type: unspecified Qualified Code(s): E78.5 - Hyperlipidemia, unspecified (4) History of tobacco abuse Priority: Secondary Status: Chronic Comments: Patient has chronic tobacco abuse. - Hospital Course Hospital course: Mr. Zamora is a 58 year old male With recurrent left lower extremity PAD and claudication. Patient was admitted for second time redo left femoral-popliteal bypass graft. Patient restitution of palpable pulse at left ankle. Patient was felt fit for discharge on the afternoon of postoperative day #1. Instructions were given in regards to diet and exercise and medications. Patient is to follow-up in 2 weeks in the vascular surgery clinic. Patient is to begin Plavix 75 mg a day at home. - Time Spent with Patient Total time spent providing and/or coordinating discharge services: - Discharge Medications Prescriptions: No Action Gabapentin [Neurontin] 800 mg PO TID Aspirin 81 mg PO DAILY Pantoprazole Sodium [Protonix] 40 mg PO HS Tamsulosin [Flomax] 0.4 mg PO BID Losartan [Cozaar] 25 mg PO DAILY Atorvastatin [Lipitor] 40 mg PO HS Amlodipine Besylate 5 mg PO DAILY Trazodone HCl 50 mg PO HS PRN PRN Reason: Sleep Home Medications: Aspirin 81 mg PO DAILY 12/28/16 [History] Gabapentin [Neurontin] 800 mg PO TID 12/28/16 [History] Atorvastatin [Lipitor] 40 mg PO HS 08/30/17 [History] Losartan [Cozaar] 25 mg PO DAILY 08/30/17 [History] Pantoprazole Sodium [Protonix] 40 mg PO HS 08/30/17 [History] Tamsulosin [Flomax] 0.4 mg PO BID 08/30/17 [History] Amlodipine Besylate 5 mg PO DAILY 09/02/18 [History] Trazodone HCl 50 mg PO HS PRN 12/05/18 [History] Allergies/Adverse Reactions: Allergy/AdvReac Type Severity Reaction Status Date / Time hydrochlorothiazide AdvReac See Verified 12/05/18 11:05 Comments morphine AdvReac Nausea Verified 09/02/18 07:22 Date of admission: 12/05/18 15:54 Primary care physician: Devyn Lazaro MD Consults: None Procedure(s) Performed: Second time redo left femoral popliteal bypass graft with PTFE Discharging clinician: Blake Browning Anticipated date of discharge: 12/06/18 Exam Vital Signs, Last 4 Hours Temp Pulse Resp BP Pulse Ox 12/05/18 15:57 97.9 F 81 14 145/75 97 12/05/18 15:25 98.2 F 80 18 154/77 98 12/05/18 15:15 85 20 159/73 96 12/05/18 15:05 91 20 125/91 99 12/05/18 14:55 98.3 F 99 20 154/73 95 General: Present: Conversant, No Apparent Distress HEENT: Present: Atraumatic Lungs: Present: Normal Breath Sounds Neuro: Present: Alert and responsive Vascular: Present: Pulse, normal (Palpable left posterior tibial pulse.), Surgical incisions (Dressings on left lower extremity surgical incisions) Skin: Present: No rashes noted on visualized skin - Patient Status Disposition: Home, Self-Care Condition: Good Functional capacity at discharge: independent ambulation Overall status at discharge: patient is progressing back to baseline - Discharge Instructions Instructions: Peripheral Vascular Disorders (DC), Chronic Hypertension (DC) Follow Up With: Devyn Lazaro MD [Primary Care Provider] - 12/12/18 10:15 am Tommy Chang MD [Partnered Physician] - 12/24/18 9:50 am Additional Instructions: Removed surgical dressings 2 days after surgery. Keep surgical sites dry for total 5 days after surgery. No lifting greater than 10 pounds. No manual labor. No driving. Follow up with Dr. Chang in 2 weeks. Elevate left lower extremity when resting at home. Resume usual home medications. Plavix 75 mg daily by mouth - Diet and Activity Activity: increase activity as tolerated Diet: low fat, low cholesterol
[2018-12-05] MEDS: Gabapentin 400 MG CAPSULE PO SCH ×2 (17:54→21:56)
[2018-12-05] MEDS: Acetaminophen IV 1,000 MG/100 ML INFUS..BTL IVPB SCH (18:55)
[2018-12-05] MEDS: *HR* OxyCODONE/APAP 5/325 TABLET PO PRN (21:56)
[2018-12-05] MEDS: Nicotine 14 MG PATCH.TD24 TD SCH (21:56)
[2018-12-06] MEDS: Acetaminophen IV 1,000 MG/100 ML INFUS..BTL IVPB SCH ×3 (00:32→12:16)
[2018-12-06] MEDS: *HR* OxyCODONE/APAP 5/325 TABLET PO PRN ×3 (02:49→12:30)
--- NOTE | 2018-12-06 06:42 | Vascular/[facility] Progress Note ---
Date of Encounter: 12/06/18 Time of Encounter: 06:41 - Assessment and plan (1) PAD (peripheral artery disease) Current Visit: No Status: Chronic Status post left femoral to [id number] popliteal bypass. His pain is controlled. The patient wishes a referral to chronic pain management. He is on aspirin and atorvastatin. We will place him on Plavix 75 mg by mouth daily. A prescription was given to the patient. His wounds are soft. The dressing is dry. The patient is to follow-up with Dr. Chang in 10 days. He is to call the office if he develops any fever or drainage from his surgical sites. He is also to call the office immediately if he develops acute pain and left leg. - Subjective Interval history: Status post redo left femoral to above-knee popliteal bypass. The patient is doing really well. He claims that the left leg pain is much improved. He is able to walk with minimal difficulties. The patient takes an aspirin at home. He is under the care of chronic pain management. The patient is allergic to morphine and hydrochlorothiazide. He is ready to be discharged home from his perspective. Vital Signs, Last 4 Hours Temp Pulse Resp BP Pulse Ox 12/06/18 04:30 79 154/82 92 12/06/18 03:30 75 162/81 94 12/06/18 02:50 98.8 F 79 18 155/81 94 - Physical Examination General: Present: No Apparent Distress HEENT: Present: Pupils equal Cardiac: Present: Reg Rate and Rhythm Lungs: Present: Normal Breath Sounds, No Wheeze, Rales, Rhonchi Neuro: Present: Alert and responsive Vascular: Present: Normal capillary refill, Pulse, absent, Other (No hematoma in the left groin or thigh. The dressings are dry.) Skin: Present: No rashes noted on visualized skin Musculoskeletal: Present: No Chest Wall Tenderness Results 12/06/18 08:12 12/06/18 08:12 Consult Discharge Plan - Plan Additional Instructions: Removed surgical dressings 2 days after surgery. Keep surgical sites dry for total 5 days after surgery. No lifting greater than 10 pounds. No manual labor. No driving. Follow up with Dr. Chang in 2 weeks. Elevate left lower extremity when resting at home. Resume usual home medications. Referrals: Devyn Lazaro MD [Primary Care Provider] - 12/12/18 10:15 am Tommy Chang MD [Partnered Physician] - 12/24/18 9:50 am
[2018-12-06] MEDS: Nicotine 14 MG PATCH.TD24 TD SCH (07:59)
[2018-12-06] MEDS: Gabapentin 400 MG CAPSULE PO SCH (07:59)
[2018-12-06 08:55] LABS: Basophils % 0.1 %; Hematocrit 38.8 % (37.5-50.1); Immature Granulocytes % 0.5 % (0-4); Lymphocytes # 2.1 K/mcL (0.6-4.6); Lymphocytes % 11.5 %; Mean Corpuscular HGB Conc 30.9 g/dL (31.6-35.5); Mean Corpuscular Hemoglobin 30.2 pg (28.0-33.3); Mean Corpuscular Volume 97.7 fL (83.0-100.0); Mean Platelet Volume 10.8 fL (9.4-12.4); Neutrophils # 14.4 K/mcL (1.6-8.9); Platelet Count 258 K/mcL (140-400); Red Blood Count 3.97 M/mcL (4.19-5.50); Red Cell Distribution Width 13.5 % (11.5-14.5); Segmented Neutrophils % 77.9 %
[2018-12-06] MEDS ORDERED: Aspirin 81 MG TAB.CHEW PO SCH (09:00)
[2018-12-06] MEDS ORDERED: amLODIPine 5 MG TABLET PO SCH (09:00)
[2018-12-06 09:01] LABS: BUN/Creatinine Ratio 18 (6-26); Blood Urea Nitrogen 21 mg/dL (6-20); Carbon Dioxide 25 mEq/L (23-29); Chloride 107 mEq/L (98-107); Glucose 104 mg/dL (70-105); Osmolality,Calculated 291 (280-300); Potassium 3.9 mEq/L (3.5-5.1); Sodium 139 mEq/L (136-145); eGFR For Non-African Americans > 60 (> 60)
[2018-12-06 09:04] LABS: Monocytes # 1.9 K/mcL (0.0-1.3)
[2018-12-06 11:16] VITALS: BP 131/80
== END 2018-12-06 14:30 | disposition home or self-care (01) | DRG 181 ==
LOC: SAMDAY 09:47 → 2NNU 15:54
PROVIDERS: ADMIT Surgery Vascular Surgery; ATTEND Surgery Vascular Surgery

== ENCOUNTER 2020-03-08 12:01 | Inpatient (IN) ==
[~2020-03-08 12:01] MED LIST: ceFAZolin 1,000 MG, Sodium Chloride IRRigation 1,000 ML IR ONE
[2020-03-08] MEDS ORDERED: CeFAZolin Syr 2,000MG/20 ML 2,000 MG/20 ML SYRINGE IVPB ONE ×2 (12:31→12:49)
[2020-03-08] MEDS ORDERED: *HR* Propofol 200 MG/20 ML VIAL IVP ONE ×2 (12:38→16:19)
[2020-03-08] MEDS ORDERED: *HR* FentaNYL (PF) 100 MCG/2 ML VIAL ONE ×5 (12:38→20:03)
[2020-03-08] MEDS ORDERED: *HR* Succinylcholine 200 MG/10 ML VIAL IVP ONE (12:40)
[2020-03-08] MEDS ORDERED: *HR* Rocuronium Bromide 50 MG/5 ML VIAL ONE (12:42)
[2020-03-08] MEDS ORDERED: Dexamethasone 4 MG/ML VIAL ONE (12:42)
[2020-03-08] MEDS ORDERED: Lidocaine -MPF 2% 2 ML VIAL ONE (12:42)
[2020-03-08] MEDS ORDERED: Ondansetron 4 MG/2 ML VIAL ONE (12:42)
[2020-03-08] MEDS ORDERED: Ringers Solution, Lactated 1,000 ML IVC SCH (12:45)
[2020-03-08] MEDS ORDERED: *HR* Metoprolol 5 MG/5 ML VIAL IVP PRN (13:12)
[2020-03-08] MEDS ORDERED: *HR* OxyCODONE Immed Rel 5 MG TABLET PO PRN (13:12)
[2020-03-08] MEDS ORDERED: Albuterol 2.5 MG/3 ML NEBULIZER IH PRN (13:12)
[2020-03-08] MEDS ORDERED: *HR* Promethazine 25 MG/ML VIAL IVP PRN (13:12)
[2020-03-08] MEDS ORDERED: Ondansetron 4 MG/2 ML VIAL IVP ONE (13:12)
[2020-03-08] MEDS ORDERED: Famotidine 20 MG/2 ML VIAL IVP ONE (13:12)
[2020-03-08] MEDS ORDERED: *HR* HYDROmorphone PF 0.5 MG/0.5 ML SYRINGE IVP PRN (13:12)
[2020-03-08] MEDS ORDERED: Acetaminophen IV 1,000 MG/100 ML INFUS..BTL IVPB ONE (13:12)
[2020-03-08] MEDS ORDERED: *HR* Midazolam HCl 2 MG/2 ML VIAL ONE (13:16)
[2020-03-08] MEDS ORDERED: Lidocaine -MPF 2% 5 ML VIAL ONE (13:47)
[2020-03-08] MEDS ORDERED: Heparin 1,000 UNITS/500 mL 500 ML ONE (13:47)
[2020-03-08] MEDS ORDERED: Heparin 1,000 UNITS/500 mL 1,000 ML ONE (14:09)
[2020-03-08] MEDS ORDERED: *HR* Remifentanil 2 MG VIAL IVP ONE (14:14)
[2020-03-08] MEDS ORDERED: EPHEDrine 50 MG/ML VIAL ONE (14:17)
[2020-03-08 14:23] LABS: ABG Base Excess 1 mEq/L (-2 to 3); ABG Chloride 106 mEq/L (98-107); ABG Glucose 80 mg/dL (60-95); ABG HCO3 26 mEq/L (21-27); ABG Ionized Calcium 1.23 mmol/L (1.15-1.35); ABG Oxygen Saturation 99 % (95-98); ABG PCO2 41 mmHg (35-45); ABG PH 7.41 pH Units (7.32-7.45); ABG PO2 113 mmHg (85-104); ABG TCO2 27 mEq/L (20-26)
[2020-03-08] MEDS ORDERED: *HR* Heparin 5,000 UNIT/ML VIAL ONE ×2 (16:18→17:50)
[2020-03-08] MEDS ORDERED: Albumin Human 5% 12.5 GM/250 ML IV.SOLN ONE ×2 (17:05→17:23)
[2020-03-08] MEDS ORDERED: *HR* Vasopressin 20 UNIT/ML VIAL ONE (17:23)
[2020-03-08] MEDS ORDERED: *HR* Norepinephrine 4 MG/4 ML VIAL IVC ONE (17:23)
[2020-03-08] MEDS ORDERED: *HR* Phenylephrine 10 MG/ML VIAL ONE (17:36)
[2020-03-08] MEDS ORDERED: Sodium Bicarbonate 50 MEQ/50 ML VIAL ONE (19:08)
[2020-03-08] MEDS ORDERED: *HR* Labetalol 20 MG/4 ML SYRINGE IVP ONE (19:50)
[2020-03-08] MEDS ORDERED: Ondansetron 4 MG/2 ML VIAL IVP PRN (22:10)
[2020-03-08] MEDS ORDERED: Naloxone 0.4 MG/ML INJ IVP PRN (22:10)
[2020-03-08] MEDS ORDERED: Clotrimazole 1% CRM 15 GM TUBE TP PRN (22:10)
[2020-03-08] MEDS ORDERED: Lactulose Oral Soln 20 GM/30 ML UDC PO PRN (22:10)
[2020-03-08] MEDS ORDERED: *HR* OxyCODONE/APAP 5/325 TABLET PO PRN (22:10)
[2020-03-08] MEDS ORDERED: Acetaminophen 325 MG TABLET PO PRN (22:10)
[2020-03-08] MEDS ORDERED: *HR* Labetalol 20 MG/4 ML SYRINGE IVP PRN (22:10)
[2020-03-08] MEDS ORDERED: Ammonium Lactate 30 APPL/225 GM BOTTLE TP PRN (22:10)
[2020-03-08] MEDS: *HR* HYDROcodone/Acet 5/325 mg TABLET PO PRN (22:29)
[2020-03-08] MEDS: Pregabalin 75 MG CAPSULE PO SCH (22:36)
[2020-03-09] MEDS: CeFAZolin 2 GM/120 ML BAG IVPB SCH ×3 (00:58→15:13)
[2020-03-09] MEDS: *HR* OxyCODONE Immed Rel 5 MG TABLET PO PRN ×2 (01:00→11:01)
[2020-03-09 04:09] LABS: Basophils % 0.3 %; Hemoglobin 9.8 g/dL (12.9-16.9); Immature Granulocytes % 0.4 % (0-4); Lymphocytes # 1.2 K/mcL (0.6-4.6); Lymphocytes % 11.8 %; Mean Corpuscular HGB Conc 32.7 g/dL (31.6-35.5); Mean Corpuscular Hemoglobin 30.4 pg (28.0-33.3); Mean Corpuscular Volume 93.2 fL (83.0-100.0); Mean Platelet Volume 10.9 fL (9.4-12.4); Monocytes # 0.7 K/mcL (0.0-1.3); Monocytes % 6.5 %; Neutrophils # 8.4 K/mcL (1.6-8.9); Platelet Count 187 K/mcL (140-400); Red Blood Count 3.22 M/mcL (4.19-5.50); Red Cell Distribution Width 14.4 % (11.5-14.5); White Blood Count 10.3 K/mcL (4.3-11.1)
[2020-03-09 04:28] LABS: BUN/Creatinine Ratio 14 (6-26); Blood Urea Nitrogen 14 mg/dL (6-20); Calcium 8.7 mg/dL (8.6-10.3); Carbon Dioxide 25 mEq/L (23-29); Chloride 107 mEq/L (98-107); Glucose 129 mg/dL (70-105); Osmolality,Calculated 286 (280-300); Potassium 4.1 mEq/L (3.5-5.1); Sodium 137 mEq/L (136-145); eGFR For African Americans > 60 (> 60); eGFR For Non-African Americans > 60 (> 60)
[2020-03-09] MEDS: Pregabalin 75 MG CAPSULE PO SCH ×2 (07:49→15:13)
[2020-03-09] MEDS: *HR* HYDROcodone/Acet 5/325 mg TABLET PO PRN ×2 (07:50→15:12)
[2020-03-09] MEDS ORDERED: Aspirin Enteric Coated 81 MG Tablet PO SCH (09:00)
[2020-03-09] MEDS ORDERED: Finasteride 5 MG TABLET PO SCH (09:00)
[2020-03-09] MEDS ORDERED: amLODIPine 5 MG TABLET PO SCH (09:00)
[2020-03-09] MEDS ORDERED: *HR* HYDROmorphone (PF) 1 MG/ML SYRINGE IVP ONE (09:13)
[2020-03-09 16:32] VITALS: BP 126/59
== END 2020-03-09 17:47 | disposition home or self-care (01) | DRG 254 ==
LOC: SAMDAY 12:01 → 2NNU 22:08
PROVIDERS: ADMIT Surgery Vascular Surgery; ATTEND Surgery Vascular Surgery

== ENCOUNTER 2020-03-23 17:12 | Inpatient (IN) ==
[2020-03-23] MEDS ORDERED: Ondansetron ODT 4 MG TAB.RAPDIS SL PRN (17:57)
[2020-03-23] MEDS ORDERED: Naloxone 0.4 MG/ML INJ IVP PRN (17:57)
[2020-03-23] MEDS ORDERED: Acetaminophen 325 MG TABLET PO PRN (17:57)
[2020-03-23] MEDS ORDERED: *HR* Heparin 5,000 UNIT/ML VIAL IVP PRN ×2 (18:23)
[2020-03-23] MEDS ORDERED: *HR* Heparin 5,000 UNIT/ML VIAL IVP ONE (18:23)
[2020-03-23] MEDS: 0.9 % Sodium Chloride 1,000 ML IVC SCH (18:29)
[2020-03-23] MEDS ORDERED: Heparin 25,000UNIT/250ML 1/2NS 25,000 UNIT/250 ML IV.SOLN IVC SCH (18:30)
[2020-03-23 18:46] LABS: Basophils # 0.1 K/mcL (0.0-0.2); Basophils % 0.7 %; Eosinophils # 0.2 K/mcL (0.0-0.6); Eosinophils % 1.8 %; Hematocrit 37.2 % (37.5-50.1); Immature Granulocytes % 0.4 % (0-4); Lymphocytes # 2.4 K/mcL (0.6-4.6); Lymphocytes % 21.9 %; Mean Corpuscular HGB Conc 32.3 g/dL (31.6-35.5); Mean Corpuscular Hemoglobin 29.5 pg (28.0-33.3); Mean Corpuscular Volume 91.4 fL (83.0-100.0); Mean Platelet Volume 9.7 fL (9.4-12.4); Monocytes # 0.9 K/mcL (0.0-1.3); Monocytes % 8.5 %; Neutrophils # 7.2 K/mcL (1.6-8.9); Platelet Count 574 K/mcL (140-400); Red Blood Count 4.07 M/mcL (4.19-5.50); Red Cell Distribution Width 14.9 % (11.5-14.5); Segmented Neutrophils % 66.7 %; White Blood Count 10.8 K/mcL (4.3-11.1)
[2020-03-23 18:57] LABS: INR 1.1; Prothrombin Time 12.3 Seconds (9.4-12.1)
[2020-03-23 19:00] LABS: Activated Partial Thrombo Time 28.2 Seconds (26.0-36.0)
[2020-03-23 19:01] LABS: BUN/Creatinine Ratio 11 (6-26); Blood Urea Nitrogen 13 mg/dL (6-20); Calcium 9.6 mg/dL (8.6-10.3); Carbon Dioxide 25 mEq/L (23-29); Chloride 104 mEq/L (98-107); Glucose 86 mg/dL (70-105); Osmolality,Calculated 281 (280-300); Potassium 3.6 mEq/L (3.5-5.1); Sodium 136 mEq/L (136-145); eGFR For African Americans > 60 (> 60); eGFR For Non-African Americans > 60 (> 60)
[2020-03-23 19:14] LABS: Heparin anti-factor XA UFH < 0.04 IU/mL (0.30-0.70)
[2020-03-23] MEDS: *HR* HYDROcodone/Acet 5/325 mg TABLET PO PRN (19:43)
[2020-03-24] MEDS: *HR* HYDROcodone/Acet 5/325 mg TABLET PO PRN ×2 (01:04→08:50)
[2020-03-24] MEDS: 0.9 % Sodium Chloride 1,000 ML IVC SCH (08:51)
[2020-03-24] MEDS ORDERED: *HR* Phenylephrine 10 MG/ML VIAL ONE (09:00)
[2020-03-24] MEDS ORDERED: amLODIPine 5 MG TABLET PO SCH (09:00)
[2020-03-24] MEDS ORDERED: *HR* FentaNYL (PF) 100 MCG/2 ML VIAL ONE ×7 (09:41→23:38)
[2020-03-24] MEDS ORDERED: *HR* Midazolam HCl 2 MG/2 ML VIAL ONE (09:41)
[2020-03-24] MEDS ORDERED: *HR* Propofol 200 MG/20 ML VIAL IVP ONE ×3 (09:42→21:40)
[2020-03-24] MEDS ORDERED: Lidocaine -MPF 2% 2 ML VIAL ONE ×2 (09:45→21:40)
[2020-03-24] MEDS ORDERED: Albuterol 2.5 MG/3 ML NEBULIZER IH PRN (09:45)
[2020-03-24] MEDS ORDERED: Ondansetron 4 MG/2 ML VIAL IVP ONE (09:45)
[2020-03-24] MEDS ORDERED: *HR* OxyCODONE Immed Rel 5 MG TABLET PO PRN (09:45)
[2020-03-24] MEDS ORDERED: Dexamethasone 4 MG/ML VIAL ONE ×3 (09:51→23:26)
[2020-03-24] MEDS ORDERED: *HR* Succinylcholine 200 MG/10 ML VIAL IVP ONE ×2 (09:51→21:40)
[2020-03-24] MEDS ORDERED: Lidocaine HCL 4 ML Topical Solution (Laryng-O-Jet Kit Sterile Pak) TP ONE (09:51)
[2020-03-24] MEDS ORDERED: *HR* Vasopressin 20 UNIT/ML VIAL ONE (09:55)
[2020-03-24] MEDS ORDERED: Heparin 1,000 UNITS/500 mL 500 ML ONE ×4 (09:58→21:49)
[2020-03-24] MEDS ORDERED: *HR* Rocuronium Bromide 50 MG/5 ML VIAL ONE ×2 (11:05→14:01)
[2020-03-24] MEDS ORDERED: ceFAZolin 2,000 MG in 0.9 % Sodium Chloride 100 ML IVPB ONE ×2 (11:10→15:10)
[2020-03-24] MEDS ORDERED: Albumin Human 5% 25.0 GM/500 ML IV.SOLN ONE (11:39)
[2020-03-24] MEDS ORDERED: *HR* Heparin 5,000 UNIT/ML VIAL ONE (12:42)
[2020-03-24] MEDS ORDERED: Heparin 1,000 UNITS/500 mL 1,000 ML ONE (12:49)
[2020-03-24] MEDS ORDERED: *HR* HYDROMORPHONE 2 MG/ML VIAL ONE ×2 (13:06→15:41)
[2020-03-24] MEDS ORDERED: Isovue-300 50ML VIAL ONE (13:42)
[2020-03-24 14:18] LABS: ABG Base Excess -3 mEq/L (-2 to 3); ABG Chloride 110 mEq/L (98-107); ABG Glucose 129 mg/dL (60-95); ABG HCO3 22 mEq/L (21-27); ABG Ionized Calcium 1.09 mmol/L (1.15-1.35); ABG Oxygen Saturation 100 % (95-98); ABG PCO2 36 mmHg (35-45); ABG PH 7.39 pH Units (7.32-7.45); ABG PO2 190 mmHg (85-104); ABG TCO2 23 mEq/L (20-26)
[2020-03-24] MEDS ORDERED: Albumin Human 5% 12.5 GM/250 ML IV.SOLN ONE ×2 (14:18→16:58)
[2020-03-24] MEDS ORDERED: ceFAZolin 2,000 MG in Water for inj. (sterile) 20 ML IVPB ONE ×2 (15:45→19:06)
[2020-03-24 16:26] LABS: ABG Base Excess -3 mEq/L (-2 to 3); ABG Chloride 110 mEq/L (98-107); ABG Glucose 126 mg/dL (60-95); ABG HCO3 22 mEq/L (21-27); ABG Ionized Calcium 1.26 mmol/L (1.15-1.35); ABG Oxygen Saturation 100 % (95-98); ABG PCO2 36 mmHg (35-45); ABG PH 7.39 pH Units (7.32-7.45); ABG PO2 205 mmHg (85-104); ABG TCO2 23 mEq/L (20-26)
[2020-03-24 17:23] LABS: ABG Base Excess -4 mEq/L (-2 to 3); ABG Chloride 109 mEq/L (98-107); ABG Glucose 145 mg/dL (60-95); ABG HCO3 20 mEq/L (21-27); ABG Ionized Calcium 1.19 mmol/L (1.15-1.35); ABG Oxygen Saturation 100 % (95-98); ABG PCO2 32 mmHg (35-45); ABG PH 7.42 pH Units (7.32-7.45); ABG PO2 198 mmHg (85-104); ABG TCO2 21 mEq/L (20-26)
[2020-03-24] MEDS ORDERED: *HR* Labetalol 20 MG/4 ML SYRINGE IVP ONE ×3 (18:27→23:41)
[2020-03-24 18:35] LABS: ABG Base Excess -3 mEq/L (-2 to 3); ABG Chloride 110 mEq/L (98-107); ABG Glucose 144 mg/dL (60-95); ABG HCO3 22 mEq/L (21-27); ABG Ionized Calcium 1.12 mmol/L (1.15-1.35); ABG Oxygen Saturation 100 % (95-98); ABG PCO2 39 mmHg (35-45); ABG PH 7.36 pH Units (7.32-7.45); ABG PO2 212 mmHg (85-104); ABG TCO2 23 mEq/L (20-26)
[2020-03-24] MEDS ORDERED: Ondansetron 4 MG/2 ML VIAL ONE ×2 (19:09→23:26)
[2020-03-24] MEDS: *HR* HYDROmorphone PF 0.5 MG/0.5 ML SYRINGE IVP PRN ×4 (20:19→20:56)
[2020-03-24] MEDS: *HR* Promethazine 25 MG/ML VIAL IVP PRN ×2 (20:20→20:32)
[2020-03-24] MEDS ORDERED: Pregabalin 75 MG CAPSULE PO ONE (20:58)
[2020-03-24] MEDS ORDERED: Ketorolac 30 MG/ML VIAL IVP ONE (20:58)
[2020-03-24] MEDS ORDERED: *HR* Etomidate 40 MG/20 ML VIAL IVP ONE (21:40)
[2020-03-24] MEDS ORDERED: Lidocaine -MPF 4% 5 ML AMPUL ONE (21:44)
[2020-03-24 21:49] LABS: Hematocrit 22.6 % (37.5-50.1)
[2020-03-24 21:51] LABS: INR 1.2
[2020-03-24 21:53] LABS: Hemoglobin 7.6 g/dL (12.9-16.9)
[2020-03-24 21:54] LABS: Activated Partial Thrombo Time 82.6 Seconds (26.0-36.0)
[2020-03-24] MEDS ORDERED: *HR* Magnesium Sulfate 1 GM/2 ML VIAL ONE (23:39)
[2020-03-25] MEDS: *HR* HYDROmorphone (PF) 1 MG/ML SYRINGE IVP PRN ×4 (00:08→01:01)
[2020-03-25] MEDS: *HR* Labetalol 20 MG/4 ML SYRINGE IVP PRN ×5 (00:25→02:37)
[2020-03-25] MEDS ORDERED: 0.9 % Sodium Chloride 500 ML ONE (00:45)
[2020-03-25 01:20] LABS: INR 1.2
[2020-03-25 01:22] LABS: Hematocrit 23.2 % (37.5-50.1); Hemoglobin 7.7 g/dL (12.9-16.9); Mean Corpuscular HGB Conc 33.2 g/dL (31.6-35.5); Mean Corpuscular Hemoglobin 30.8 pg (28.0-33.3); Mean Corpuscular Volume 92.8 fL (83.0-100.0); Mean Platelet Volume 10.9 fL (9.4-12.4); Platelet Count 248 K/mcL (140-400); Red Cell Distribution Width 15.9 % (11.5-14.5); White Blood Count 17.8 K/mcL (4.3-11.1)
[2020-03-25] MEDS ORDERED: Ondansetron ODT 4 MG TAB.RAPDIS SL PRN (01:40)
[2020-03-25] MEDS ORDERED: Lactulose Oral Soln 20 GM/30 ML UDC PO PRN (01:40)
[2020-03-25] MEDS ORDERED: Ammonium Lactate 30 APPL/225 GM BOTTLE TP PRN (01:40)
[2020-03-25] MEDS ORDERED: Naloxone 0.4 MG/ML INJ IVP PRN ×3 (01:40)
[2020-03-25] MEDS ORDERED: 0.9 % Sodium Chloride 1,000 ML IVC SCH (01:40)
[2020-03-25] MEDS ORDERED: Clotrimazole 1% CRM 15 GM TUBE TP PRN (01:40)
[2020-03-25] MEDS ORDERED: Ondansetron 4 MG/2 ML VIAL IVP PRN (01:40)
[2020-03-25] MEDS ORDERED: Heparin 25,000UNIT/250ML 1/2NS 25,000 UNIT/250 ML IV.SOLN IVC SCH (01:40)
[2020-03-25] MEDS ORDERED: ceFAZolin 2,000 MG in Water for inj. (sterile) 20 ML IVPB ONE (01:40)
[2020-03-25] MEDS ORDERED: *HR* Heparin 5,000 UNIT/ML VIAL IVP PRN ×2 (01:40)
[2020-03-25] MEDS ORDERED: Albuterol 2.5 MG/3 ML NEBULIZER IH PRN (01:40)
[2020-03-25] MEDS ORDERED: *HR* OxyCODONE/APAP 5/325 TABLET PO PRN (01:40)
[2020-03-25] MEDS ORDERED: Ondansetron 4 MG/2 ML VIAL IVP ONE (01:40)
[2020-03-25] MEDS: *HR* OxyCODONE Immed Rel 5 MG TABLET PO PRN ×3 (02:32→18:48)
[2020-03-25] MEDS: CeFAZolin 2 GM/120 ML BAG IVPB SCH ×3 (02:35→18:45)
[2020-03-25 03:32] LABS: Basophils % 0.1 %; Hematocrit 22.5 % (37.5-50.1); Hemoglobin 7.6 g/dL (12.9-16.9); Immature Granulocytes % 0.5 % (0-4); Lymphocytes # 1.1 K/mcL (0.6-4.6); Lymphocytes % 6.6 %; Mean Corpuscular HGB Conc 33.8 g/dL (31.6-35.5); Mean Corpuscular Hemoglobin 30.8 pg (28.0-33.3); Mean Corpuscular Volume 91.1 fL (83.0-100.0); Mean Platelet Volume 10.5 fL (9.4-12.4); Monocytes # 1.3 K/mcL (0.0-1.3); Monocytes % 7.4 %; Neutrophils # 14.5 K/mcL (1.6-8.9); Platelet Count 232 K/mcL (140-400); Red Blood Count 2.47 M/mcL (4.19-5.50); Red Cell Distribution Width 15.8 % (11.5-14.5); Segmented Neutrophils % 85.4 %
[2020-03-25 03:51] LABS: BUN/Creatinine Ratio 14 (6-26); Blood Urea Nitrogen 15 mg/dL (6-20); Calcium 8.1 mg/dL (8.6-10.3); Carbon Dioxide 20 mEq/L (23-29); Chloride 113 mEq/L (98-107); Creatine Kinase 542 Units/L (30-223); Glucose 134 mg/dL (70-105); Osmolality,Calculated 293 (280-300); Potassium 3.9 mEq/L (3.5-5.1); Sodium 140 mEq/L (136-145); eGFR For African Americans > 60 (> 60); eGFR For Non-African Americans > 60 (> 60)
[2020-03-25] MEDS: traZODone 50 MG TABLET PO SCH ×2 (04:40→21:20)
[2020-03-25] MEDS: Pregabalin 75 MG CAPSULE PO SCH ×4 (04:40→21:20)
[2020-03-25] MEDS: *HR* HYDROcodone/Acet 5/325 mg TABLET PO PRN ×2 (07:15→16:14)
[2020-03-25] MEDS: Finasteride 5 MG TABLET PO SCH (07:16)
[2020-03-25] MEDS: Aspirin Enteric Coated 81 MG Tablet PO SCH (07:16)
[2020-03-25] MEDS: amLODIPine 5 MG TABLET PO SCH (07:16)
[2020-03-25] MEDS ORDERED: amLODIPine 5 MG TABLET PO SCH (09:00)
[2020-03-25] MEDS ORDERED: 0.9 % Sodium Chloride 250 ML ONE (10:55)
[2020-03-25] MEDS: *HR* Rivaroxaban 15 MG TABLET PO SCH (16:15)
[2020-03-26] MEDS: *HR* HYDROcodone/Acet 5/325 mg TABLET PO PRN ×3 (00:12→15:00)
[2020-03-26 01:12] LABS: Hematocrit 25.7 % (37.5-50.1); Hemoglobin 8.2 g/dL (12.9-16.9); Mean Corpuscular HGB Conc 31.9 g/dL (31.6-35.5); Mean Corpuscular Hemoglobin 28.9 pg (28.0-33.3); Mean Corpuscular Volume 90.5 fL (83.0-100.0); Mean Platelet Volume 10.9 fL (9.4-12.4); Platelet Count 206 K/mcL (140-400); Red Blood Count 2.84 M/mcL (4.19-5.50); Red Cell Distribution Width 18.3 % (11.5-14.5); White Blood Count 14.4 K/mcL (4.3-11.1)
[2020-03-26 01:33] LABS: BUN/Creatinine Ratio 16 (6-26); Blood Urea Nitrogen 15 mg/dL (6-20); Calcium 8.5 mg/dL (8.6-10.3); Carbon Dioxide 21 mEq/L (23-29); Chloride 112 mEq/L (98-107); Glucose 103 mg/dL (70-105); Osmolality,Calculated 295 (280-300); Potassium 3.5 mEq/L (3.5-5.1); Sodium 142 mEq/L (136-145); eGFR For African Americans > 60 (> 60); eGFR For Non-African Americans > 60 (> 60)
[2020-03-26] MEDS: *HR* OxyCODONE Immed Rel 5 MG TABLET PO PRN ×4 (04:49→23:20)
[2020-03-26] MEDS: amLODIPine 5 MG TABLET PO SCH (07:37)
[2020-03-26] MEDS: Aspirin Enteric Coated 81 MG Tablet PO SCH (07:37)
[2020-03-26] MEDS: *HR* Rivaroxaban 15 MG TABLET PO SCH ×2 (07:37→16:17)
[2020-03-26] MEDS: Pregabalin 75 MG CAPSULE PO SCH ×3 (07:38→19:36)
[2020-03-26] MEDS: Finasteride 5 MG TABLET PO SCH (07:38)
[2020-03-26] MEDS: traZODone 50 MG TABLET PO SCH (19:36)
[2020-03-26] MEDS: Acetaminophen 325 MG TABLET PO PRN (19:37)
[2020-03-27] MEDS: *HR* HYDROcodone/Acet 5/325 mg TABLET PO PRN ×3 (01:57→13:48)
[2020-03-27] MEDS: *HR* OxyCODONE Immed Rel 5 MG TABLET PO PRN ×3 (05:11→19:55)
[2020-03-27] MEDS: Finasteride 5 MG TABLET PO SCH (07:05)
[2020-03-27] MEDS: Pregabalin 75 MG CAPSULE PO SCH ×3 (07:05→19:58)
[2020-03-27] MEDS: amLODIPine 5 MG TABLET PO SCH (07:06)
[2020-03-27] MEDS: Aspirin Enteric Coated 81 MG Tablet PO SCH (07:06)
[2020-03-27] MEDS: *HR* Rivaroxaban 15 MG TABLET PO SCH ×2 (07:06→16:14)
[2020-03-27] MEDS: Acetaminophen 325 MG TABLET PO PRN (11:17)
[2020-03-27] MEDS ORDERED: 0.9 % Sodium Chloride 1,000 ML IVC SCH (12:00)
[2020-03-27] MEDS ORDERED: Vancomycin 1,250 MG/262.5 ML IV.SOLN IVPB ONE (12:09)
[2020-03-27] MEDS ORDERED: Isovue-370 500 ML BOTTLE IVP ONE (12:17)
[2020-03-27] MEDS: Piperacillin/Tazobactam 3.375 GM in 0.9 % Sodium Chloride Mini Bag 100 ML IVPB SCH (15:04)
[2020-03-27 16:12] LABS: Basophils % 0.2 %; Eosinophils # 0.1 K/mcL (0.0-0.6); Eosinophils % 0.4 %; Hematocrit 26.7 % (37.5-50.1); Hemoglobin 8.6 g/dL (12.9-16.9); Immature Granulocytes % 0.5 % (0-4); Lymphocytes # 2.2 K/mcL (0.6-4.6); Lymphocytes % 11.4 %; Mean Corpuscular HGB Conc 32.2 g/dL (31.6-35.5); Mean Corpuscular Hemoglobin 29.1 pg (28.0-33.3); Mean Corpuscular Volume 90.2 fL (83.0-100.0); Mean Platelet Volume 10.9 fL (9.4-12.4); Monocytes # 1.9 K/mcL (0.0-1.3); Monocytes % 9.9 %; Neutrophils # 14.6 K/mcL (1.6-8.9); Platelet Count 209 K/mcL (140-400); Red Blood Count 2.96 M/mcL (4.19-5.50); Red Cell Distribution Width 17.4 % (11.5-14.5); Segmented Neutrophils % 77.6 %; White Blood Count 18.9 K/mcL (4.3-11.1)
[2020-03-27 16:33] LABS: BUN/Creatinine Ratio 11 (6-26); Blood Urea Nitrogen 9 mg/dL (6-20); Calcium 8.7 mg/dL (8.6-10.3); Carbon Dioxide 23 mEq/L (23-29); Chloride 105 mEq/L (98-107); Glucose 96 mg/dL (70-105); Osmolality,Calculated 285 (280-300); Potassium 3.3 mEq/L (3.5-5.1); Sodium 138 mEq/L (136-145); eGFR For African Americans > 60 (> 60); eGFR For Non-African Americans > 60 (> 60)
[2020-03-27] MEDS: traZODone 50 MG TABLET PO SCH (19:55)
[2020-03-27] MEDS: *HR* Labetalol 20 MG/4 ML SYRINGE IVP PRN (19:56)
[2020-03-28] MEDS: *HR* HYDROcodone/Acet 5/325 mg TABLET PO PRN ×4 (00:19→23:53)
[2020-03-28] MEDS: Acetaminophen 325 MG TABLET PO PRN (00:19)
[2020-03-28] MEDS: Piperacillin/Tazobactam 3.375 GM in 0.9 % Sodium Chloride Mini Bag 100 ML IVPB SCH ×4 (00:21→23:52)
[2020-03-28 02:24] LABS: Basophils % 0.2 %; Eosinophils % 0.2 %; Hematocrit 22.6 % (37.5-50.1); Hemoglobin 7.4 g/dL (12.9-16.9); Immature Granulocytes % 0.5 % (0-4); Lymphocytes # 1.6 K/mcL (0.6-4.6); Mean Corpuscular HGB Conc 32.7 g/dL (31.6-35.5); Mean Corpuscular Hemoglobin 29.1 pg (28.0-33.3); Mean Platelet Volume 11.7 fL (9.4-12.4); Monocytes # 1.8 K/mcL (0.0-1.3); Monocytes % 10.1 %; Neutrophils # 14.3 K/mcL (1.6-8.9); Platelet Count 210 K/mcL (140-400); Red Blood Count 2.54 M/mcL (4.19-5.50); Red Cell Distribution Width 17.1 % (11.5-14.5); White Blood Count 17.8 K/mcL (4.3-11.1)
[2020-03-28 02:42] LABS: BUN/Creatinine Ratio 11 (6-26); Blood Urea Nitrogen 9 mg/dL (6-20); Calcium 8.3 mg/dL (8.6-10.3); Carbon Dioxide 23 mEq/L (23-29); Chloride 104 mEq/L (98-107); Glucose 147 mg/dL (70-105); Osmolality,Calculated 285 (280-300); Potassium 3.1 mEq/L (3.5-5.1); Sodium 137 mEq/L (136-145); eGFR For African Americans > 60 (> 60); eGFR For Non-African Americans > 60 (> 60)
[2020-03-28] MEDS: *HR* OxyCODONE Immed Rel 5 MG TABLET PO PRN ×4 (06:26→21:56)
[2020-03-28] MEDS: Finasteride 5 MG TABLET PO SCH (07:31)
[2020-03-28] MEDS: Aspirin Enteric Coated 81 MG Tablet PO SCH (07:31)
[2020-03-28] MEDS: *HR* Rivaroxaban 15 MG TABLET PO SCH ×2 (07:32→16:14)
[2020-03-28] MEDS: amLODIPine 5 MG TABLET PO SCH (07:32)
[2020-03-28] MEDS: Pregabalin 75 MG CAPSULE PO SCH ×3 (07:32→19:29)
[2020-03-28 11:06] LABS: Hematocrit 25.2 % (37.5-50.1); Hemoglobin 8.1 g/dL (12.9-16.9)
[2020-03-28] MEDS ORDERED: Acetaminophen IV 1,000 MG/100 ML INFUS..BTL IVPB ONE (13:49)
[2020-03-28] MEDS: 0.9 % Sodium Chloride 1,000 ML IVC SCH (18:38)
[2020-03-28] MEDS: traZODone 50 MG TABLET PO SCH (19:29)
[2020-03-29 00:53] LABS: Basophils % 0.2 %; Eosinophils # 0.2 K/mcL (0.0-0.6); Hematocrit 24.8 % (37.5-50.1); Hemoglobin 7.7 g/dL (12.9-16.9); Immature Granulocytes % 0.6 % (0-4); Lymphocytes # 1.8 K/mcL (0.6-4.6); Lymphocytes % 10.4 %; Mean Corpuscular Hemoglobin 28.7 pg (28.0-33.3); Mean Corpuscular Volume 92.5 fL (83.0-100.0); Mean Platelet Volume 11.6 fL (9.4-12.4); Monocytes # 1.9 K/mcL (0.0-1.3); Monocytes % 10.9 %; Neutrophils # 13.5 K/mcL (1.6-8.9); Platelet Count 259 K/mcL (140-400); Red Blood Count 2.68 M/mcL (4.19-5.50); Red Cell Distribution Width 17.2 % (11.5-14.5); Segmented Neutrophils % 76.9 %; White Blood Count 17.5 K/mcL (4.3-11.1)
[2020-03-29 01:12] LABS: BUN/Creatinine Ratio 13 (6-26); Blood Urea Nitrogen 13 mg/dL (6-20); Calcium 8.3 mg/dL (8.6-10.3); Carbon Dioxide 23 mEq/L (23-29); Chloride 104 mEq/L (98-107); Glucose 101 mg/dL (70-105); Osmolality,Calculated 284 (280-300); Potassium 3.4 mEq/L (3.5-5.1); Sodium 137 mEq/L (136-145); eGFR For African Americans > 60 (> 60); eGFR For Non-African Americans > 60 (> 60)
[2020-03-29] MEDS: *HR* OxyCODONE Immed Rel 5 MG TABLET PO PRN ×2 (02:51→07:41)
[2020-03-29] MEDS: *HR* HYDROcodone/Acet 5/325 mg TABLET PO PRN ×2 (04:49→21:16)
[2020-03-29] MEDS: Aspirin Enteric Coated 81 MG Tablet PO SCH (07:39)
[2020-03-29] MEDS: Finasteride 5 MG TABLET PO SCH (07:40)
[2020-03-29] MEDS: *HR* Rivaroxaban 15 MG TABLET PO SCH ×2 (07:40→16:37)
[2020-03-29] MEDS: amLODIPine 5 MG TABLET PO SCH (07:40)
[2020-03-29] MEDS: Pregabalin 75 MG CAPSULE PO SCH ×3 (07:40→19:49)
[2020-03-29] MEDS: Piperacillin/Tazobactam 3.375 GM in 0.9 % Sodium Chloride Mini Bag 100 ML IVPB SCH ×2 (07:55→18:08)
[2020-03-29] MEDS ORDERED: Sennosides 8.6 MG TABLET PO ONE (08:44)
[2020-03-29] MEDS: *HR* HYDROmorphone (PF) 1 MG/ML SYRINGE IVP PRN ×4 (08:57→23:01)
[2020-03-29] MEDS ORDERED: 0.9 % Sodium Chloride 250 ML IVC SCH (16:00)
[2020-03-29] MEDS: Acetaminophen 325 MG TABLET PO PRN (16:14)
[2020-03-29] MEDS: 0.9 % Sodium Chloride 1,000 ML IVC SCH (18:08)
[2020-03-29] MEDS: traZODone 50 MG TABLET PO SCH (19:49)
[2020-03-29] MEDS: Sennosides/Docusate Sodium TABLET PO SCH (19:49)
[2020-03-29] MEDS ORDERED: *HR* OxyCODONE Immed Rel 5 MG TABLET PO ONE (22:53)
[2020-03-30] MEDS: Piperacillin/Tazobactam 3.375 GM in 0.9 % Sodium Chloride Mini Bag 100 ML IVPB SCH ×4 (00:13→22:54)
[2020-03-30] MEDS: *HR* HYDROcodone/Acet 5/325 mg TABLET PO PRN ×3 (01:42→15:20)
[2020-03-30] MEDS: Vancomycin 1,250 MG/262.5 ML IV.SOLN IVPB SCH ×3 (01:43→22:58)
[2020-03-30] MEDS: *HR* HYDROmorphone (PF) 1 MG/ML SYRINGE IVP PRN ×4 (03:25→23:09)
[2020-03-30] MEDS ORDERED: *HR* OxyCODONE Immed Rel 5 MG TABLET PO ONE (04:24)
[2020-03-30] MEDS ORDERED: Acetaminophen IV 1,000 MG/100 ML INFUS..BTL IVPB ONE ×2 (04:25→08:13)
[2020-03-30 05:20] LABS: Basophils # 0.1 K/mcL (0.0-0.2); Basophils % 0.4 %; Eosinophils # 0.1 K/mcL (0.0-0.6); Eosinophils % 0.7 %; Hematocrit 25.8 % (37.5-50.1); Hemoglobin 8.3 g/dL (12.9-16.9); Immature Granulocytes % 0.7 % (0-4); Lymphocytes # 1.8 K/mcL (0.6-4.6); Lymphocytes % 9.5 %; Mean Corpuscular HGB Conc 32.2 g/dL (31.6-35.5); Mean Corpuscular Volume 93.1 fL (83.0-100.0); Mean Platelet Volume 10.8 fL (9.4-12.4); Monocytes # 2.3 K/mcL (0.0-1.3); Neutrophils # 14.8 K/mcL (1.6-8.9); Platelet Count 285 K/mcL (140-400); Red Blood Count 2.77 M/mcL (4.19-5.50); Red Cell Distribution Width 16.3 % (11.5-14.5); Segmented Neutrophils % 76.7 %; White Blood Count 19.4 K/mcL (4.3-11.1)
[2020-03-30 05:39] LABS: BUN/Creatinine Ratio 9 (6-26); Blood Urea Nitrogen 9 mg/dL (6-20); Calcium 8.3 mg/dL (8.6-10.3); Carbon Dioxide 22 mEq/L (23-29); Chloride 106 mEq/L (98-107); Glucose 123 mg/dL (70-105); Magnesium 1.6 mg/dL (1.6-2.6); Osmolality,Calculated 280 (280-300); Phosphorous 2.9 mg/dL (2.7-4.5); Potassium 3.4 mEq/L (3.5-5.1); Sodium 135 mEq/L (136-145); eGFR For African Americans > 60 (> 60); eGFR For Non-African Americans > 60 (> 60)
[2020-03-30] MEDS: amLODIPine 5 MG TABLET PO SCH (07:35)
[2020-03-30] MEDS: Aspirin Enteric Coated 81 MG Tablet PO SCH (07:35)
[2020-03-30] MEDS: Sennosides/Docusate Sodium TABLET PO SCH ×2 (07:35→20:32)
[2020-03-30] MEDS: Finasteride 5 MG TABLET PO SCH (07:35)
[2020-03-30] MEDS: Pregabalin 75 MG CAPSULE PO SCH ×3 (07:35→20:32)
[2020-03-30] MEDS: *HR* Rivaroxaban 15 MG TABLET PO SCH (07:35)
[2020-03-30] MEDS ORDERED: Potassium Chloride 20 MEQ, Lidocaine 1% 2 ML in 0.9 % Sodium Chloride 250 ML IVPB ONE (07:42)
[2020-03-30] MEDS: 0.9 % Sodium Chloride 1,000 ML IVC SCH (16:45)
[2020-03-30] MEDS: traZODone 50 MG TABLET PO SCH (20:32)
[2020-03-30] MEDS: *HR* Labetalol 20 MG/4 ML SYRINGE IVP PRN (23:10)
[2020-03-31] MEDS: *HR* HYDROmorphone (PF) 1 MG/ML SYRINGE IVP PRN ×2 (02:55→18:55)
[2020-03-31 03:31] LABS: Basophils # 0.1 K/mcL (0.0-0.2); Basophils % 0.5 %; Eosinophils # 0.1 K/mcL (0.0-0.6); Eosinophils % 0.5 %; Hematocrit 22.4 % (37.5-50.1); Hemoglobin 7.3 g/dL (12.9-16.9); Lymphocytes # 1.6 K/mcL (0.6-4.6); Mean Corpuscular HGB Conc 32.6 g/dL (31.6-35.5); Mean Corpuscular Volume 92.2 fL (83.0-100.0); Mean Platelet Volume 11.2 fL (9.4-12.4); Monocytes # 2.1 K/mcL (0.0-1.3); Neutrophils # 12.2 K/mcL (1.6-8.9); Platelet Count 284 K/mcL (140-400); Red Blood Count 2.43 M/mcL (4.19-5.50); Red Cell Distribution Width 16.5 % (11.5-14.5); White Blood Count 16.3 K/mcL (4.3-11.1)
[2020-03-31 03:47] LABS: Alanine Aminotransferase 27 Units/L (7-52); Alkaline Phosphatase 53 Units/L (34-104); Aspartate Amino Transferase 53 Units/L (13-39); BUN/Creatinine Ratio 11 (6-26); Bilirubin,Total 0.4 mg/dL (0.3-1.0); Blood Urea Nitrogen 10 mg/dL (6-20); Calcium 7.8 mg/dL (8.6-10.3); Carbon Dioxide 21 mEq/L (23-29); Chloride 108 mEq/L (98-107); Globulin 2.9 g/dL (2.4-3.5); Glucose 98 mg/dL (70-105); Magnesium 1.7 mg/dL (1.6-2.6); Osmolality,Calculated 283 (280-300); Phosphorous 2.9 mg/dL (2.7-4.5); Potassium 3.4 mEq/L (3.5-5.1); Sodium 137 mEq/L (136-145); Total Protein 5.9 g/dL (6.4-8.9); eGFR For African Americans > 60 (> 60); eGFR For Non-African Americans > 60 (> 60)
[2020-03-31] MEDS ORDERED: Potassium Chloride 40 MEQ, Lidocaine 1% 2 ML in 0.9 % Sodium Chloride 500 ML IVPB ONE (08:14)
[2020-03-31] MEDS: Piperacillin/Tazobactam 3.375 GM in 0.9 % Sodium Chloride Mini Bag 100 ML IVPB SCH ×4 (08:48→22:41)
[2020-03-31] MEDS: amLODIPine 5 MG TABLET PO SCH (08:49)
[2020-03-31] MEDS: Sennosides/Docusate Sodium TABLET PO SCH ×2 (08:49→20:29)
[2020-03-31] MEDS: Finasteride 5 MG TABLET PO SCH (08:49)
[2020-03-31] MEDS: Pregabalin 75 MG CAPSULE PO SCH ×3 (08:49→20:30)
[2020-03-31] MEDS: Aspirin Enteric Coated 81 MG Tablet PO SCH (08:49)
[2020-03-31] MEDS: *HR* HYDROcodone/Acet 5/325 mg TABLET PO PRN ×2 (08:58→20:30)
[2020-03-31] MEDS ORDERED: Lidocaine -MPF 2% 2 ML VIAL ONE (12:09)
[2020-03-31] MEDS ORDERED: *HR* Propofol 200 MG/20 ML VIAL IVP ONE (12:09)
[2020-03-31] MEDS ORDERED: Ondansetron 4 MG/2 ML VIAL ONE ×2 (12:09→12:51)
[2020-03-31] MEDS ORDERED: *HR* FentaNYL (PF) 100 MCG/2 ML VIAL ONE (12:09)
[2020-03-31] MEDS ORDERED: *HR* Midazolam HCl 2 MG/2 ML VIAL ONE (12:09)
[2020-03-31] MEDS ORDERED: *HR* Rocuronium Bromide 50 MG/5 ML VIAL ONE (12:09)
[2020-03-31] MEDS ORDERED: Ropivacaine/PF 0.5% 30 ML VIAL ONE ×2 (12:12→12:15)
[2020-03-31] MEDS ORDERED: Lidocaine -MPF 4% 5 ML AMPUL ONE (12:12)
[2020-03-31] MEDS: Vancomycin 1,250 MG/262.5 ML IV.SOLN IVPB SCH (12:55)
[2020-03-31] MEDS ORDERED: ceFAZolin 1,000 MG, Sodium Chloride IRRigation 1,000 ML IR ONE (13:00)
[2020-03-31] MEDS ORDERED: *HR* PHENYLEPHRINE 1,000 MCG/10 ML SYRINGE IVP ONE ×2 (13:25→14:57)
[2020-03-31] MEDS ORDERED: Dexamethasone 4 MG/ML VIAL ONE (13:28)
[2020-03-31] MEDS ORDERED: Naloxone 0.4 MG/ML INJ IVP PRN (16:43)
[2020-03-31] MEDS ORDERED: Clotrimazole 1% CRM 15 GM TUBE TP PRN (16:43)
[2020-03-31] MEDS ORDERED: Ammonium Lactate 30 APPL/225 GM BOTTLE TP PRN (16:43)
[2020-03-31] MEDS ORDERED: Ondansetron 4 MG/2 ML VIAL IVP PRN (16:43)
[2020-03-31] MEDS ORDERED: Lactulose Oral Soln 20 GM/30 ML UDC PO PRN (16:43)
[2020-03-31] MEDS ORDERED: Ondansetron ODT 4 MG TAB.RAPDIS SL PRN (16:43)
[2020-03-31] MEDS ORDERED: Acetaminophen 325 MG TABLET PO PRN (16:43)
[2020-03-31] MEDS ORDERED: 0.9 % Sodium Chloride 250 ML IVC SCH (16:43)
[2020-03-31] MEDS ORDERED: Albuterol 2.5 MG/3 ML NEBULIZER IH PRN (16:43)
[2020-03-31] MEDS ORDERED: *HR* Labetalol 20 MG/4 ML SYRINGE IVP PRN (16:43)
[2020-03-31] MEDS: 0.9 % Sodium Chloride 1,000 ML IVC SCH ×2 (17:17→18:34)
[2020-03-31] MEDS: traZODone 50 MG TABLET PO SCH (20:30)
[2020-03-31 23:02] LABS: Hematocrit 25.8 % (37.5-50.1); Hemoglobin 8.2 g/dL (12.9-16.9)
[2020-04-01] MEDS ORDERED: Vancomycin 1,250 MG/262.5 ML IV.SOLN IVPB SCH (01:00)
[2020-04-01] MEDS: *HR* HYDROmorphone (PF) 1 MG/ML SYRINGE IVP PRN ×5 (01:59→20:01)
[2020-04-01 03:16] LABS: Basophils % 0.1 %; Hematocrit 27.5 % (37.5-50.1); Hemoglobin 8.8 g/dL (12.9-16.9); Immature Granulocytes % 0.5 % (0-4); Lymphocytes # 0.7 K/mcL (0.6-4.6); Lymphocytes % 4.8 %; Mean Corpuscular Volume 90.8 fL (83.0-100.0); Mean Platelet Volume 11.3 fL (9.4-12.4); Monocytes # 1.1 K/mcL (0.0-1.3); Monocytes % 6.9 %; Neutrophils # 13.6 K/mcL (1.6-8.9); Platelet Count 305 K/mcL (140-400); Red Blood Count 3.03 M/mcL (4.19-5.50); Red Cell Distribution Width 16.9 % (11.5-14.5); Segmented Neutrophils % 87.7 %; White Blood Count 15.5 K/mcL (4.3-11.1)
[2020-04-01 03:22] LABS: Calcium 8.2 mg/dL (8.6-10.3); Potassium 3.9 mEq/L (3.5-5.1)
[2020-04-01] MEDS: Pregabalin 75 MG CAPSULE PO SCH ×3 (07:32→19:59)
[2020-04-01] MEDS: Sennosides/Docusate Sodium TABLET PO SCH ×2 (07:32→20:06)
[2020-04-01] MEDS: *HR* HYDROcodone/Acet 5/325 mg TABLET PO PRN ×4 (07:33→23:36)
[2020-04-01] MEDS: Finasteride 5 MG TABLET PO SCH (07:33)
[2020-04-01] MEDS: amLODIPine 5 MG TABLET PO SCH (07:33)
[2020-04-01] MEDS: Aspirin Enteric Coated 81 MG Tablet PO SCH (07:33)
[2020-04-01] MEDS: Piperacillin/Tazobactam 3.375 GM in 0.9 % Sodium Chloride Mini Bag 100 ML IVPB SCH (07:40)
[2020-04-01] MEDS: diazePAM 5 MG TABLET PO PRN ×2 (14:09→20:00)
[2020-04-01] MEDS: 0.9 % Sodium Chloride 1,000 ML IVC SCH (14:10)
[2020-04-01] MEDS: traZODone 50 MG TABLET PO SCH (20:00)
[2020-04-02] MEDS: *HR* HYDROmorphone (PF) 1 MG/ML SYRINGE IVP PRN (03:03)
[2020-04-02 04:45] LABS: Basophils # 0.1 K/mcL (0.0-0.2); Basophils % 0.4 %; Eosinophils # 0.1 K/mcL (0.0-0.6); Eosinophils % 0.7 %; Hematocrit 24.9 % (37.5-50.1); Immature Granulocytes % 0.7 % (0-4); Lymphocytes # 1.9 K/mcL (0.6-4.6); Lymphocytes % 13.4 %; Mean Corpuscular HGB Conc 32.1 g/dL (31.6-35.5); Mean Corpuscular Hemoglobin 29.7 pg (28.0-33.3); Mean Corpuscular Volume 92.6 fL (83.0-100.0); Mean Platelet Volume 10.9 fL (9.4-12.4); Monocytes # 1.1 K/mcL (0.0-1.3); Monocytes % 7.5 %; Neutrophils # 10.8 K/mcL (1.6-8.9); Platelet Count 368 K/mcL (140-400); Red Blood Count 2.69 M/mcL (4.19-5.50); Segmented Neutrophils % 77.3 %
[2020-04-02 05:04] LABS: Calcium 7.7 mg/dL (8.6-10.3); Magnesium 1.9 mg/dL (1.6-2.6); Phosphorous 4.3 mg/dL (2.7-4.5); Potassium 3.6 mEq/L (3.5-5.1)
[2020-04-02] MEDS: Finasteride 5 MG TABLET PO SCH (07:58)
[2020-04-02] MEDS: Aspirin Enteric Coated 81 MG Tablet PO SCH (07:58)
[2020-04-02] MEDS: Sennosides/Docusate Sodium TABLET PO SCH ×2 (07:58→20:28)
[2020-04-02] MEDS: *HR* HYDROcodone/Acet 5/325 mg TABLET PO PRN ×3 (07:58→18:28)
[2020-04-02] MEDS: amLODIPine 5 MG TABLET PO SCH (07:59)
[2020-04-02] MEDS: Pregabalin 75 MG CAPSULE PO SCH ×3 (07:59→20:29)
[2020-04-02] MEDS: diazePAM 5 MG TABLET PO PRN ×2 (08:00→16:59)
[2020-04-02] MEDS ORDERED: 0.9 % Sodium Chloride 500 ML IVC ONE (11:04)
[2020-04-02] MEDS: 0.9 % Sodium Chloride 1,000 ML IVC SCH (13:40)
[2020-04-02] MEDS: traZODone 50 MG TABLET PO SCH (20:50)
[2020-04-03] MEDS: 0.9 % Sodium Chloride 1,000 ML IVC SCH ×2 (03:23→19:56)
[2020-04-03] MEDS: *HR* HYDROcodone/Acet 5/325 mg TABLET PO PRN ×3 (03:25→16:00)
[2020-04-03] MEDS: Sennosides/Docusate Sodium TABLET PO SCH ×2 (07:52→20:01)
[2020-04-03] MEDS: Pregabalin 75 MG CAPSULE PO SCH ×2 (07:52→14:26)
[2020-04-03] MEDS: Aspirin Enteric Coated 81 MG Tablet PO SCH (07:52)
[2020-04-03] MEDS: Finasteride 5 MG TABLET PO SCH (07:53)
[2020-04-03] MEDS: amLODIPine 5 MG TABLET PO SCH (07:53)
[2020-04-03] MEDS ORDERED: amLODIPine 5 MG TABLET PO ONE (12:45)
[2020-04-03 13:05] LABS: Calcium 8.1 mg/dL (8.6-10.3); Potassium 4.2 mEq/L (3.5-5.1)
[2020-04-03] MEDS: traZODone 50 MG TABLET PO SCH (20:01)
[2020-04-04] MEDS: *HR* HYDROcodone/Acet 5/325 mg TABLET PO PRN ×3 (03:35→14:58)
[2020-04-04 05:44] LABS: Potassium 4.1 mEq/L (3.5-5.1)
[2020-04-04] MEDS: Sennosides/Docusate Sodium TABLET PO SCH (07:42)
[2020-04-04] MEDS: Aspirin Enteric Coated 81 MG Tablet PO SCH (08:01)
[2020-04-04] MEDS: Finasteride 5 MG TABLET PO SCH (08:01)
[2020-04-04] MEDS ORDERED: amLODIPine 5 MG TABLET PO SCH (09:00)
[2020-04-04 10:58] VITALS: BP 139/72
[2020-04-04] MEDS: Pregabalin 50 MG CAPSULE PO SCH ×2 (11:16→14:58)
[2020-04-04] MEDS: 0.9 % Sodium Chloride 1,000 ML IVC SCH (11:18)
== END 2020-04-04 15:30 | DRG 239 ==
LOC: 2NNU → SUATTDRO 17:57
PROVIDERS: ADMIT Surgery Vascular Surgery; ATTEND Internal Medicine

== ENCOUNTER 2020-11-17 10:39 | Inpatient (IN) ==
[~2020-11-17 10:39] MED LIST changes: +*HR* Propofol 200 MG/20 ML VIAL IVP ONE; +Lidocaine -MPF 2% 2 ML VIAL ONE; -ceFAZolin 1,000 MG, Sodium Chloride IRRigation 1,000 ML IR ONE
[2020-11-17] MEDS ORDERED: CeFAZolin Syr 2,000MG/20 ML 2,000 MG/20 ML SYRINGE IVPB ONE (11:16)
[2020-11-17] MEDS ORDERED: Ringers Solution, Lactated 1,000 ML IVC SCH ×2 (11:30→14:45)
[2020-11-17] MEDS ORDERED: Vancomycin 1,000 MG, Sodium Chloride IRRigation 1,000 ML IR ONE (12:00)
[2020-11-17] MEDS ORDERED: *HR* FentaNYL (PF) 100 MCG/2 ML VIAL ONE (12:39)
[2020-11-17] MEDS ORDERED: Ondansetron 4 MG/2 ML VIAL ONE (12:58)
[2020-11-17] MEDS ORDERED: *HR* HYDROMORPHONE 2 MG/ML VIAL ONE (13:10)
[2020-11-17] MEDS ORDERED: *HR* Propofol 200 MG/20 ML VIAL IVP ONE (13:38)
[2020-11-17] MEDS ORDERED: Ondansetron 4 MG/2 ML VIAL IVP PRN ×2 (14:32→21:15)
[2020-11-17] MEDS ORDERED: *HR* HYDROcodone/Acet 5/325 mg TABLET PO PRN (14:32)
[2020-11-17] MEDS: *HR* HYDROmorphone PF 0.5 MG/0.5 ML SYRINGE IVP PRN ×4 (14:45→15:25)
[2020-11-17] MEDS ORDERED: Acetaminophen IV 1,000 MG/100 ML BAG IVPB ONE (15:38)
[2020-11-17] MEDS ORDERED: *HR* HYDROmorphone PF 0.5 MG/0.5 ML SYRINGE IVP PRN (16:07)
[2020-11-17] MEDS ORDERED: Ketorolac 30 MG/ML VIAL IVP ONE (18:46)
[2020-11-17] MEDS ORDERED: Acetaminophen 325 MG TABLET PO PRN (21:15)
[2020-11-17] MEDS ORDERED: Naloxone 0.4 MG/ML INJ IVP PRN (21:15)
[2020-11-17] MEDS ORDERED: *HR* Labetalol 20 MG/4 ML SYRINGE IVP PRN (21:15)
[2020-11-17] MEDS ORDERED: 0.9 % Sodium Chloride 1,000 ML IVC SCH (21:15)
[2020-11-17] MEDS: Mirtazapine 15 MG TABLET PO SCH (21:45)
[2020-11-17] MEDS: traZODone 50 MG TABLET PO SCH (21:45)
[2020-11-17] MEDS: *HR* OxyCODONE Immed Rel 5 MG TABLET PO PRN (21:45)
[2020-11-17] MEDS: Pregabalin 50 MG CAPSULE PO SCH (21:45)
[2020-11-17] MEDS: CeFAZolin 2 GM/120 ML BAG IVPB SCH (21:53)
[2020-11-18] MEDS: Ketorolac 15 MG/ML VIAL IVP SCH ×5 (01:02→23:06)
[2020-11-18] MEDS: *HR* Metoprolol 5 MG/5 ML VIAL IVP SCH ×5 (01:02→23:06)
[2020-11-18] MEDS: *HR* OxyCODONE Immed Rel 5 MG TABLET PO PRN ×4 (03:51→23:05)
[2020-11-18 04:02] LABS: Basophils % 0.3 %; Eosinophils # 0.1 K/mcL (0.0-0.6); Eosinophils % 0.9 %; Hematocrit 23.2 % (37.5-50.1); Immature Granulocytes % 0.4 % (0-4); Lymphocytes % 15.2 %; Mean Corpuscular Hemoglobin 27.2 pg (28.0-33.3); Mean Corpuscular Volume 87.5 fL (83.0-100.0); Mean Platelet Volume 10.2 fL (9.4-12.4); Monocytes # 0.9 K/mcL (0.0-1.3); Monocytes % 6.8 %; Neutrophils # 9.8 K/mcL (1.6-8.9); Platelet Count 402 K/mcL (140-400); Red Blood Count 2.65 M/mcL (4.19-5.50); Red Cell Distribution Width 14.9 % (11.5-14.5); Segmented Neutrophils % 76.4 %; White Blood Count 12.8 K/mcL (4.3-11.1)
[2020-11-18 04:05] LABS: Hemoglobin 7.2 g/dL (12.9-16.9)
[2020-11-18 04:24] LABS: BUN/Creatinine Ratio 14 (6-26); Blood Urea Nitrogen 12 mg/dL (6-20); Carbon Dioxide 22 mEq/L (23-29); Chloride 109 mEq/L (98-107); Glucose 98 mg/dL (70-105); Osmolality,Calculated 286 (280-300); Potassium 3.6 mEq/L (3.5-5.1); Sodium 138 mEq/L (136-145); eGFR For African Americans > 60 (> 60); eGFR For Non-African Americans > 60 (> 60)
[2020-11-18] MEDS ORDERED: *HR* Heparin 5,000 UNIT/ML VIAL SQ SCH (06:00)
[2020-11-18] MEDS: *HR* Heparin 5,000 UNIT/ML VIAL SQ SCH ×2 (06:10→17:03)
[2020-11-18] MEDS: CeFAZolin 2 GM/120 ML BAG IVPB SCH (06:11)
[2020-11-18] MEDS: Aspirin Enteric Coated 81 MG Tablet PO SCH (08:24)
[2020-11-18] MEDS: amLODIPine 5 MG TABLET PO SCH (08:25)
[2020-11-18] MEDS: Finasteride 5 MG TABLET PO SCH (08:25)
[2020-11-18] MEDS: Pregabalin 50 MG CAPSULE PO SCH ×3 (08:25→20:37)
[2020-11-18] MEDS: *HR* HYDROcodone/Acet 5/325 mg TABLET PO PRN ×2 (08:28→19:54)
[2020-11-18] MEDS ORDERED: 0.9 % Sodium Chloride 250 ML ONE ×2 (20:23→23:38)
[2020-11-18] MEDS: traZODone 50 MG TABLET PO SCH (20:37)
[2020-11-18] MEDS: Mirtazapine 15 MG TABLET PO SCH (20:37)
[2020-11-19] MEDS: *HR* HYDROcodone/Acet 5/325 mg TABLET PO PRN ×2 (02:31→08:40)
[2020-11-19] MEDS: *HR* OxyCODONE Immed Rel 5 MG TABLET PO PRN ×2 (05:15→11:15)
[2020-11-19] MEDS: *HR* Metoprolol 5 MG/5 ML VIAL IVP SCH ×2 (05:15→12:07)
[2020-11-19] MEDS: *HR* Heparin 5,000 UNIT/ML VIAL SQ SCH (05:16)
[2020-11-19] MEDS: Ketorolac 15 MG/ML VIAL IVP SCH ×2 (05:16→12:06)
[2020-11-19] MEDS: Aspirin Enteric Coated 81 MG Tablet PO SCH (08:30)
[2020-11-19] MEDS: amLODIPine 5 MG TABLET PO SCH (08:30)
[2020-11-19] MEDS: Finasteride 5 MG TABLET PO SCH (08:31)
[2020-11-19] MEDS: Pregabalin 50 MG CAPSULE PO SCH (08:31)
[2020-11-19 10:41] VITALS: BP 122/65
== END 2020-11-19 12:57 | disposition home or self-care (01) | DRG 476 ==
LOC: SAMDAY 10:39 → 3NENU 12:00
PROVIDERS: ADMIT Surgery; ATTEND Surgery